=== PATIENT | female | born 1975 | race African-American/Black ===

== ENCOUNTER 2017-08-29 01:12 | Emergency (ER) | payer SELFPAY ==
[2017-08-29] MEDS ORDERED: Ondansetron 4 MG/2 ML SDV IVPUSH ONE (01:20)
[2017-08-29] MEDS ORDERED: Sodium Chloride 0.9% 1,000 ML IV ONE (01:20)
[2017-08-29] MEDS ORDERED: Ketorolac 30 MG/ML SDV IVPUSH ONE (01:20)
--- NOTE | 2017-08-29 01:21 | EDM.PDOC ---
ED HPI GENERAL MEDICAL PROBLEM - General Stated Complaint: ABDOMINAL PAIN Time Seen by Provider: 08/29/17 01:21 Source of Information: Reports: Patient - History of Present Illness INITIAL COMMENTS - FREE TEXT/NARRATIVE: HISTORY AND PHYSICAL: History of present illness: [Patient presents with left upper quadrant pain persistent throughout the day no fever nausea vomiting diarrhea constipation chest pain shortness breath no headache dizziness or palpitation no bowel or urine symptoms last bowel movement normal formed stool yesterday morning, approximately 20 hours ago. She has known history of anemia, she is not a sickle cell patient, she generally takes iron supplementation intermittently History of appendectomy ] Review of systems: As per history of present illness and below otherwise all systems reviewed and negative. Past medical history: As per history of present illness and as reviewed below otherwise noncontributory. Surgical history: As per history of present illness and as reviewed below otherwise noncontributory. Social history: No reported history of drug or alcohol abuse. Family history: As per history of present illness and as reviewed below otherwise noncontributory. Physical exam: HEENT: Atraumatic, normocephalic, pupils reactive, negative for conjunctival pallor or scleral icterus, mucous membranes moist, throat clear, neck supple, nontender, trachea midline. Lungs: Clear to auscultation, breath sounds equal bilaterally, chest nontender. Heart: S1S2, regular, negative for clicks, rubs, or JVD. Abdomen: Soft, protuberant, nontender. Negative for masses or hepatosplenomegaly. Negative for costovertebral tenderness. Pelvis: Stable nontender. Genitourinary: Deferred. Rectal: Deferred. By patient Extremities: Atraumatic, negative for cords or calf pain. Neurovascular unremarkable. Neuro: Awake, alert, oriented. Cranial nerves II through XII unremarkable. Cerebellum unremarkable. Motor and sensory unremarkable throughout. Exam nonfocal. Diagnostics: [CBC CMP UA hCG] ET abdomen pelvis with and without contrast Therapeutics: [1 L normal saline bolus Zofran 8 mg IV Toradol 30 mg IV ] Reglan 10 mg IV Reglan Simethicone MiraLAX Follow-up with primary care Impression: Abdominal pain Anemia Definitive disposition and diagnosis as appropriate pending reevaluation and review of above. L Flank/Side Pain Score (Numeric/FACES): 8 - Related Data Allergies Allergy/AdvReac Type Severity Reaction Status Date / Time No Known Allergies Allergy Verified 08/29/17 01:26 Home Meds: Home Meds . [No Known Home Meds] 08/29/17 [History] ED ROS GENERAL - Review of Systems Review Of Systems: See Below ED EXAM, GENERAL - Physical Exam Exam: See Below Course - Vital Signs Last Recorded V/S: Last Vital Signs Temp 98.0 F 08/29/17 01:22 Pulse 81 08/29/17 01:22 Resp 16 08/29/17 01:22 BP 123/81 08/29/17 01:22 Pulse Ox 99 08/29/17 01:22 - Orders/Labs/Meds Orders: Active Orders 24 hr Category Date Time Status Abdomen Pelvis w wo Cont [CT] Stat Exams 08/29/17 01:50 Taken Abdomen Pelvis wo Cont [CT] Stat Exams 08/29/17 01:49 Stop Req HCG QUALITATIVE,URINE [URCHEM] Stat Lab 08/29/17 01:28 Ordered UA W/MICROSCOPIC [URIN] Stat Lab 08/29/17 01:28 Ordered Labs: Laboratory Tests 08/29/17 08/29/17 08/29/17 Range/Units 01:28 01:28 01:33 WBC 6.68 (4.0-11.0) K/uL RBC 4.58 (4.30-5.90) M/uL Hgb 8.9 L (12.0-16.0) g/dL Hct 30.2 L (36.0-46.0) % MCV 65.9 L (80.0-98.0) fL MCH 19.4 L (27.0-32.0) pg MCHC 29.5 L (31.0-37.0) g/dL RDW Std Deviation 41.3 (28.0-62.0) fl RDW Coeff of Deon 18 H (11.0-15.0) % Plt Count 265 (150-400) K/uL MPV 10.30 (7.40-12.00) fL Neut % (Auto) 40.1 L (48.0-80.0) % Lymph % (Auto) 47.2 H (16.0-40.0) % [place]haw % (Auto) 11.5 (0.0-15.0) % Eos % (Auto) 0.6 (0.0-7.0) % Baso % (Auto) 0.6 (0.0-1.5) % Neut # (Auto) 2.7 (1.4-5.7) K/uL Lymph # (Auto) 3.2 H (0.6-2.4) K/uL [place]haw # (Auto) 0.8 (0.0-0.8) K/uL Eos # (Auto) 0.0 (0.0-0.7) K/uL Baso # (Auto) 0.0 (0.0-0.1) K/uL Sodium (136-145) mmol/L Potassium (3.5-5.1) mmol/L Chloride (98-107) mmol/L Carbon Dioxide (21.0-32.0) mmol/L BUN (7.0-18.0) mg/dL Creatinine (0.6-1.0) mg/dL Est Cr Clr Drug Dosing mL/min Estimated GFR (MDRD) ml/min Glucose (74-106) mg/dL Calcium (8.5-10.1) mg/dL Total Bilirubin (0.2-1.0) mg/dL AST (15-37) IU/L ALT (14-63) IU/L Alkaline Phosphatase (46-116) U/L Total Protein (6.4-8.2) g/dL Albumin (3.4-5.0) g/dL Globulin (2.0-3.5) g/dL Albumin/Globulin Ratio (1.3-2.8) Lipase (73-393) U/L Urine Color YELLOW Urine Appearance CLEAR Urine pH 6.0 (5.0-8.0) Ur Specific [place] 1.015 (1.001-1.035) Urine Protein NEGATIVE (NEGATIVE) mg/dL Urine Glucose (UA) NEGATIVE (NEGATIVE) mg/dL Urine Ketones NEGATIVE (NEGATIVE) mg/dL Urine Occult Blood NEGATIVE (NEGATIVE) Urine Nitrite NEGATIVE (NEGATIVE) Urine Bilirubin NEGATIVE (NEGATIVE) Urine Urobilinogen 0.2 (<2.0) EU/dL Ur Leukocyte Esterase NEGATIVE (NEGATIVE) Urine RBC 1-3 (0-2/HPF) Urine WBC 0-2 (0-5/HPF) Ur Epithelial Cells MODERATE (NONE-FEW) Urine Bacteria 1+ H (NEGATIVE) Urine HCG, Qual NEGATIVE (NEGATIVE) 08/29/17 08/29/17 Range/Units 01:33 01:33 WBC (4.0-11.0) K/uL RBC (4.30-5.90) M/uL Hgb (12.0-16.0) g/dL Hct (36.0-46.0) % MCV (80.0-98.0) fL MCH (27.0-32.0) pg MCHC (31.0-37.0) g/dL RDW Std Deviation (28.0-62.0) fl RDW Coeff of Deon (11.0-15.0) % Plt Count (150-400) K/uL MPV (7.40-12.00) fL Neut % (Auto) (48.0-80.0) % Lymph % (Auto) (16.0-40.0) % [place]haw % (Auto) (0.0-15.0) % Eos % (Auto) (0.0-7.0) % Baso % (Auto) (0.0-1.5) % Neut # (Auto) (1.4-5.7) K/uL Lymph # (Auto) (0.6-2.4) K/uL [place]haw # (Auto) (0.0-0.8) K/uL Eos # (Auto) (0.0-0.7) K/uL Baso # (Auto) (0.0-0.1) K/uL Sodium 138 (136-145) mmol/L Potassium 3.7 (3.5-5.1) mmol/L Chloride 105 (98-107) mmol/L Carbon Dioxide 26.3 (21.0-32.0) mmol/L BUN 11 (7.0-18.0) mg/dL Creatinine 0.7 (0.6-1.0) mg/dL Est Cr Clr Drug Dosing 102.85 mL/min Estimated GFR (MDRD) > 60.0 ml/min Glucose 108 H (74-106) mg/dL Calcium 8.5 (8.5-10.1) mg/dL Total Bilirubin 0.5 (0.2-1.0) mg/dL AST 17 (15-37) IU/L ALT 19 (14-63) IU/L Alkaline Phosphatase 41 L (46-116) U/L Total Protein 7.5 (6.4-8.2) g/dL Albumin 3.5 (3.4-5.0) g/dL Globulin 4.0 H (2.0-3.5) g/dL Albumin/Globulin Ratio 0.9 L (1.3-2.8) Lipase 115 (73-393) U/L Urine Color Urine Appearance Urine pH (5.0-8.0) Ur Specific [place] (1.001-1.035) Urine Protein (NEGATIVE) mg/dL Urine Glucose (UA) (NEGATIVE) mg/dL Urine Ketones (NEGATIVE) mg/dL Urine Occult Blood (NEGATIVE) Urine Nitrite (NEGATIVE) Urine Bilirubin (NEGATIVE) Urine Urobilinogen (<2.0) EU/dL Ur Leukocyte Esterase (NEGATIVE) Urine RBC (0-2/HPF) Urine WBC (0-5/HPF) Ur Epithelial Cells (NONE-FEW) Urine Bacteria (NEGATIVE) Urine HCG, Qual (NEGATIVE) Meds: Medications Discontinued Medications Generic Name Dose Route Start Last Admin Trade Name Shilpa PRN Reason Stop Dose Admin Sodium Chloride 1,000 mls @ 999 mls/hr 08/29/17 01:20 08/29/17 01:35 Normal Saline IV 08/29/17 02:20 999 mls/hr STAT ONE Administration Ketorolac Tromethamine 30 mg 08/29/17 01:20 08/29/17 01:39 Toradol IVPUSH 08/29/17 01:21 30 mg ONETIME ONE Administration Ondansetron HCl 8 mg 08/29/17 01:20 08/29/17 01:37 Zofran IVPUSH 08/29/17 01:21 8 mg ONETIME ONE Administration Departure - Departure Time of Disposition: 03:38 Disposition: Home, Self-Care 01 Condition: Good Clinical Impression: Abdominal pain - Discharge Information Referrals: PCP,None [Primary Care Provider] - Additional Instructions: Medication as prescribed MiraLAX 17 g by mouth daily until clear Clear liquid diet until bowels are clear generally 12-24 hours Return if symptoms persist or worsen or new concerning symptoms develop [facility] is open tomorrow from noon until 3pm to fill prescription medications Follow-up with primary care, call phone number below to schedule appropriate follow-up to recheck hemoglobin levels [facility] [address] [place] [id number] The following information is given to patients seen in the emergency department who are being discharged to home. This information is to outline your options for follow-up care. We provide all patients seen in our emergency department with a follow-up referral. The need for follow-up, as well as the timing and circumstances, are variable depending upon the specifics of your emergency department visit. If you don't have a primary care physician on staff, we will provide you with a referral. We always advise you to contact your personal physician following an emergency department visit to inform them of the circumstance of the visit and for follow-up with them and/or the need for any referrals to a consulting specialist. The emergency department will also refer you to a specialist when appropriate. This referral assures that you have the opportunity for follow-up care with a specialist. All of these measure are taken in an effort to provide you with optimal care, which includes your follow-up. Under all circumstances we always encourage you to contact your private physician who remains a resource for coordinating your care. When calling for follow-up care, please make the office aware that this follow-up is from your recent emergency room visit. If for any reason you are refused follow-up, please contact the [facility] emergency department at and asked to speak to the emergency department charge nurse. - My Orders Last 24 Hours: My Active Orders 08/29/17 01:28 HCG QUALITATIVE,URINE [URCHEM] Stat UA W/MICROSCOPIC [URIN] Stat 08/29/17 01:49 Abdomen Pelvis wo Cont [CT] Stat 08/29/17 01:50 Abdomen Pelvis w wo Cont [CT] Stat - Assessment/Plan Last 24 Hours: My Active Orders 08/29/17 01:28 HCG QUALITATIVE,URINE [URCHEM] Stat UA W/MICROSCOPIC [URIN] Stat 08/29/17 01:49 Abdomen Pelvis wo Cont [CT] Stat 08/29/17 01:50 Abdomen Pelvis w wo Cont [CT] Stat
[2017-08-29 01:56] LABS: CHLORIDE,CL 105 mmol/L (98-107); SODIUM,NA 138 mmol/L (136-145)
--- NOTE | 2017-08-31 10:55 | CT ---
EXAM DATE: 08/29/17 PATIENT'S AGE: 42 Patient: AMANDO RESENDIZ Facility: [place], [place] Site . Site : [id number] Study: CT Abdomen/Pelvis W/ and W/O Cont [id number]/[id number] 2:22:11 AM Ordering Physician: Arianna Barboza Final Report: INDICATION: Generalized abdominal pain. TECHNIQUE: CT abdomen and pelvis acquired without and with i.v. 100 mL Omnipaque 350. Coronal and sagittal reformats were obtained. COMPARISON: None FINDINGS: Restaurant Cook CT images: Nonobstructive bowel gas pattern. Moderate stool in the ascending colon. Lower chest: Unremarkable. Liver: Unremarkable. Spleen: Unremarkable. Pancreas: Unremarkable. Gallbladder and bile ducts: Unremarkable. Kidneys: Unremarkable. No kidney or ureteral stones and no hydronephrosis seen. Adrenal glands: Unremarkable. GI tract: No bowel obstruction. Moderate stool burden in nondilated large bowel. Appendix not clearly identified in the right lower quadrant. No fat stranding or fluid adjacent to the cecum. No abnormal bowel wall thickening. Small bowel mucosal enhancement preserved. No interloop ascites or abnormal mesenteric fat stranding. Vascular: All abdominal aorta is normal in caliber. No abdominal aortic dissection. Normal orientation of the SMA and SMV. However, there appears to be twisting of the mesenteric veins around the SMA in the central mesentery. Mesenteric vessels appear to be well opacified. Lymph nodes: Unremarkable. Miscellaneous: Unremarkable. No pneumoperitoneum is seen. No significant ascites is noted. Fact containing umbilical hernia defect. Pelvic Organs: Unremarkable. No free pelvic fluid. Bones: Unremarkable for age. IMPRESSION: 1. No acute abnormality in the abdomen or pelvis on noncontrast or contrast- enhanced CT imaging. 2. No obstructing renal or ureteral calculi. 3. Normal orientation of the SMA and SMV. Swirling of mesenteric vessels around the SMA axis in the central mesentery. No adjacent edema or interloop ascites. No evidence of acute bowel injury at this time. Findings may represent normal variant in this patient, but possible midgut volvulus or internal hernia can be associated with this finding. If clinical symptoms persist, consider general surgery evaluation. Findings noted on series 301 images 58- 80. Dictated by Gabe Sr MD @ 08/29/2017 3:28:42 AM Please note that all CT scans at this facility use dose modulation, iterative reconstruction, and/or weight-based dosing when appropriate to reduce radiation dose to as low as reasonably achievable. Dictated by: Gabe Sr MD @ 08/29/2017 03:28:48 ----- ADDENDUM ----- ADDENDUM: 1. Dr. Keller confirmed report receipt on 08/29/2017 at 3:32am DIRECTOR OF CATERING. Dictated by Gabe Sr MD @ Aug 29 2017 3:53AM (Electronic Signature) Report Signed by Proxy. [facility]
== END 2017-08-29 04:35 | disposition home or self-care (01) ==
LOC: MW.ED 01:12
DX: D64.9 Anemia, unspecified (principal); R10.12 Left upper quadrant pain
CPT/HCPCS: 36415; 74178; 80053; 81001; 81025; 83690; 85025; 96361; 96374; 96375; 99284; J1885; J2405; J7040; 99283

== ENCOUNTER 2019-05-08 16:26 | Emergency (ER) | payer SELFPAY ==
--- NOTE | 2019-05-08 17:14 | EDM.PDOC ---
ED HPI GENERAL MEDICAL PROBLEM - General Chief Complaint: ROOFER VINYL COATING Problem Stated Complaint: LEFT LEG PAIN Time Seen by Provider: 05/08/19 17:10 Source of Information: Reports: Patient - History of Present Illness INITIAL COMMENTS - FREE TEXT/NARRATIVE: HISTORY AND PHYSICAL: History of present illness: [Patient presents with painful swelling of the left labia No fever nausea vomiting chills sweats ] Review of systems: As per history of present illness and below otherwise all systems reviewed and negative. Past medical history: As per history of present illness and as reviewed below otherwise noncontributory. Surgical history: As per history of present illness and as reviewed below otherwise noncontributory. Social history: No reported history of drug or alcohol abuse. Family history: As per history of present illness and as reviewed below otherwise noncontributory. Physical exam: HEENT: Atraumatic, normocephalic, pupils reactive, negative for conjunctival pallor or scleral icterus, mucous membranes moist, throat clear, neck supple, nontender, trachea midline. Lungs: Clear to auscultation, breath sounds equal bilaterally, chest nontender. Heart: S1S2, regular, negative for clicks, rubs, or JVD. Abdomen: Soft, nondistended, nontender. Negative for masses or hepatosplenomegaly. Negative for costovertebral tenderness. Pelvis: Stable nontender. Genitourinary: external exam performed , fluctuant lesion left labia, tender, acant dranage post i&D Rectal: Deferred. Extremities: Atraumatic, negative for cords or calf pain. Neurovascular unremarkable. Neuro: Awake, alert, oriented. Cranial nerves II through XII unremarkable. Cerebellum unremarkable. Motor and sensory unremarkable throughout. Exam nonfocal. Diagnostics: [culture, wound ] Therapeutics: [cipro flagyl ] Impression: [abcess, post I&D] Definitive disposition and diagnosis as appropriate pending reevaluation and review of above. labia Pain Score (Numeric/FACES): 5 - Related Data Allergies Allergy/AdvReac Type Severity Reaction Status Date / Time No Known Allergies Allergy Verified 05/08/19 16:43 Home Meds: Home Meds . [No Known Home Meds] 08/29/17 [History] Past Medical History - Past Health History Medical/Surgical History: Denies Medical/Surgical History - Infectious Disease History Infectious Disease History: Reports: None Social & Family History - Family History Family Medical History: Noncontributory - Tobacco Use Smoking Status *Q: Never Smoker - Caffeine Use Caffeine Use: Reports: None - Recreational Drug Use Recreational Drug Use: No ED ROS GENERAL - Review of Systems Review Of Systems: See Below ED EXAM, GENERAL - Physical Exam Exam: See Below Course - Vital Signs Last Recorded V/S: Last Vital Signs Temp 98.3 F 05/08/19 16:39 Pulse 77 05/08/19 16:39 Resp 18 05/08/19 16:39 BP 143/88 H 05/08/19 16:39 Pulse Ox 99 05/08/19 16:39 - Orders/Labs/Meds Meds: Medications Discontinued Medications Generic Name Dose Route Start Last Admin Trade Name Shilpa PRN Reason Stop Dose Admin Lidocaine HCl Confirm 05/08/19 16:53 Xylocaine-Mpf 1% Administered 05/08/19 16:54 Dose 5 ml .ROUTE .STK-MED ONE Departure - Departure Time of Disposition: 17:13 Disposition: Home, Self-Care 01 Condition: Good Clinical Impression: Abscess - Discharge Information Referrals: PCP,None [Primary Care Provider] - Additional Instructions: medication as prescribed Return if symptoms persist or worsen Follow-up with gynecology, Wednesday for reexamination/recheck [facility] [address] [place] [address] The following information is given to patients seen in the emergency department who are being discharged to home. This information is to outline your options for follow-up care. We provide all patients seen in our emergency department with a follow-up referral. The need for follow-up, as well as the timing and circumstances, are variable depending upon the specifics of your emergency department visit. If you don't have a primary care physician on staff, we will provide you with a referral. We always advise you to contact your personal physician following an emergency department visit to inform them of the circumstance of the visit and for follow-up with them and/or the need for any referrals to a consulting specialist. The emergency department will also refer you to a specialist when appropriate. This referral assures that you have the opportunity for follow-up care with a specialist. All of these measure are taken in an effort to provide you with optimal care, which includes your follow-up. Under all circumstances we always encourage you to contact your private physician who remains a resource for coordinating your care. When calling for follow-up care, please make the office aware that this follow-up is from your recent emergency room visit. If for any reason you are refused follow-up, please contact the [facility] emergency department at and asked to speak to the emergency department charge nurse. Sepsis Event Note - Evaluation Sepsis Screening Result: No Definite Risk - Focused Exam Vital Signs: Vital Signs Temp Pulse Resp BP Pulse Ox 05/08/19 16:39 98.3 F 77 18 143/88 H 99 Date Exam was Performed: 05/08/19 Time Exam was Performed: 17:10
== END 2019-05-08 17:35 | disposition home or self-care (01) ==
LOC: MW.ED 16:26
DX: N76.4 Abscess of vulva (principal)
CPT/HCPCS: 56405; 87070; 87077; 87186; 99283; J2001; 10060

== ENCOUNTER 2020-06-03 10:26 | Inpatient (IN) | payer MEDICAID ==
[2020-06-03] MEDS ORDERED: Methylergonovine 0.2 MG/1 ML Amp IM PRN (16:22)
[2020-06-03] MEDS ORDERED: Carboprost Tromethamine 250 MCG/1 ML Amp IM PRN (16:22)
[2020-06-03] MEDS ORDERED: Sodium Chloride 0.9% 10 ML Syringe FLUSH PRN (16:22)
[2020-06-03] MEDS ORDERED: Sodium Chloride 0.9% 2.5 ML Syringe FLUSH PRN (16:22)
[2020-06-03] MEDS ORDERED: Ondansetron 4 MG/2 ML SDV IVPUSH PRN (16:22)
[2020-06-03] MEDS ORDERED: Nalbuphine 10 MG/1 ML Vial IVPUSH PRN (16:22)
[2020-06-03] MEDS ORDERED: Misoprostol 200 MCG Tab PO PRN (16:22)
[2020-06-03] MEDS ORDERED: Water For Irrigation,Sterile 1,000 ML Container IRR PRN (16:22)
[2020-06-03] MEDS ORDERED: Terbutaline 1 MG/ML SDV SUBCUT PRN (16:22)
[2020-06-03] MEDS ORDERED: Lidocaine 1% 50 ML MDV INJECT PRN (16:22)
[2020-06-03] MEDS ORDERED: Tranexamic Acid 1,000 MG in Sodium Chloride 0.9% 100 ML IV PRN (16:22)
[2020-06-03] MEDS ORDERED: Sodium Chloride 0.9% 10 ML SDV IV PRN (16:22)
[2020-06-03] MEDS ORDERED: Oxytocin/0.9 % Sodium Chloride 30 UNIT/500 ML BAG IV SCH ×2 (16:30)
[2020-06-03] MEDS ORDERED: Misoprostol 25 MCG (1/4 of 100 MCG) Tab VAG PRN (17:00)
[2020-06-03] MEDS: Lactated Ringers 1,000 ML IV SCH (18:05)
[2020-06-03 19:17] LABS: BLOOD UREA NITROGEN,BUN 7 mg/dL (7.0-18.0); CARBON DIOXIDE,CO2 22.8 mmol/L (21.0-32.0); CHLORIDE,CL 102 mmol/L (98-107); GLUCOSE RANDOM 86 mg/dL (74-106); POTASSIUM,K 3.8 mmol/L (3.5-5.1); SODIUM,NA 136 mmol/L (136-145)
[2020-06-03] MEDS: Misoprostol 25 MCG (1/4 of 100 MCG) Tab VAG PRN (22:41)
[2020-06-04] MEDS: Misoprostol 25 MCG (1/4 of 100 MCG) Tab VAG PRN ×2 (02:43→08:04)
[2020-06-04] MEDS: Butorphanol 1 MG/ML SDV IVPUSH PRN ×2 (03:39→17:08)
[2020-06-04] MEDS: Lactated Ringers 1,000 ML IV SCH ×3 (08:04→18:41)
[2020-06-04] MEDS ORDERED: Acetaminophen 500 MG Tab PO PRN (09:00)
[2020-06-04] MEDS ORDERED: Ropivacaine 0.2% PF 2 MG/ML 20 ML SDV ONE (17:42)
[2020-06-04] MEDS ORDERED: Bupivicaine/fentaNYL/NS 250 ML ONE (17:43)
--- NOTE | 2020-06-04 18:31 | PCM.PREANE ---
Preanesthetic Assessment - Procedure Proposed Procedure: labor epidural - Anesthesia/Transfusion/Family Hx Anesthesia History: Prior Anesthesia Without Reaction Family History of Anesthesia Reaction: No Transfusion History: No Prior Transfusion(s) - Review of Systems General: No Symptoms Pulmonary: No Symptoms Cardiovascular: No Symptoms, Other (gestational HTN) Gastrointestinal: No Symptoms Neurological: No Symptoms Other: Reports: None, Diabetes (gestational) - Physical Assessment Height: 5 ft 6 in Weight: 107.501 kg ASA Class: 3 Mental Status: Alert & Oriented x3 Airway Class: Mallampati = 1 Dentition: Reports: Normal Dentition Thyro-Mental Finger Breadths: 3 Mouth Opening Finger Breadths: 3 ROM/Head Extension: Full Lungs: Clear to Auscultation, Normal Respiratory Effort Cardiovascular: Regular Rate, Regular Rhythm - Lab Values: Laboratory Last Values WBC 8.09 K/uL (4.0-11.0) 06/03/20 18:04 RBC 4.97 M/uL (4.30-5.90) 06/03/20 18:04 Hgb 13.3 g/dL (12.0-16.0) 06/03/20 18:04 Hct 41.2 % (36.0-46.0) 06/03/20 18:04 MCV 82.9 fL (80.0-98.0) 06/03/20 18:04 MCH 26.8 pg (27.0-32.0) L 06/03/20 18:04 MCHC 32.3 g/dL (31.0-37.0) 06/03/20 18:04 RDW Std Deviation 50.7 fl (28.0-62.0) 06/03/20 18:04 RDW Coeff of Deon 17 % (11.0-15.0) H 06/03/20 18:04 Plt Count 161 K/uL (150-400) 06/03/20 18:04 MPV 10.60 fL (7.40-12.00) 06/03/20 18:04 Neut % (Auto) 67.7 % (48.0-80.0) 06/03/20 18:04 Lymph % (Auto) 22.9 % (16.0-40.0) 06/03/20 18:04 Broome % (Auto) 9.1 % (0.0-15.0) 06/03/20 18:04 Eos % (Auto) 0.2 % (0.0-7.0) 06/03/20 18:04 Baso % (Auto) 0.1 % (0.0-1.5) 06/03/20 18:04 Neut # (Auto) 5.5 K/uL (1.4-5.7) 06/03/20 18:04 Lymph # (Auto) 1.9 K/uL (0.6-2.4) 06/03/20 18:04 Broome # (Auto) 0.7 K/uL (0.0-0.8) 06/03/20 18:04 Eos # (Auto) 0.0 K/uL (0.0-0.7) 06/03/20 18:04 Baso # (Auto) 0.0 K/uL (0.0-0.1) 06/03/20 18:04 Nucleated RBC % 0.0 /100WBC 06/03/20 18:04 Nucleated RBCs # 0 K/uL 06/03/20 18:04 Sodium 136 mmol/L (136-145) 06/03/20 18:26 Potassium 3.8 mmol/L (3.5-5.1) 06/03/20 18:26 Chloride 102 mmol/L (98-107) 06/03/20 18:26 Carbon Dioxide 22.8 mmol/L (21.0-32.0) 06/03/20 18:26 BUN 7 mg/dL (7.0-18.0) 06/03/20 18:26 Creatinine 0.4 mg/dL (0.6-1.0) L 06/03/20 18:26 Est Cr Clr Drug Dosing 185.52 mL/min 06/03/20 18:26 Estimated GFR (MDRD) > 60.0 ml/min 06/03/20 18:26 Glucose 86 mg/dL (74-106) 06/03/20 18:26 Uric Acid 4.2 mg/dL (2.6-7.2) 06/03/20 18:26 Calcium 9.2 mg/dL (8.5-10.1) 06/03/20 18:26 Total Bilirubin 0.8 mg/dL (0.2-1.0) 06/03/20 18:26 AST 16 IU/L (15-37) 06/03/20 18:26 ALT 24 IU/L (14-63) 06/03/20 18:26 Alkaline Phosphatase 153 U/L (46-116) H 06/03/20 18:26 Total Protein 6.8 g/dL (6.4-8.2) 06/03/20 18:26 Albumin 2.5 g/dL (3.4-5.0) L 06/03/20 18:26 Globulin 4.3 g/dL (2.6-4.0) H 06/03/20 18:26 Albumin/Globulin Ratio 0.6 (0.9-1.6) L 06/03/20 18:26 Ur Random Creatinine 50.8 mg/dL 06/03/20 17:00 U Random Total Protein 15.3 mg/dL (<11.9) H 06/03/20 17:00 Protein/Creatinin Ratio 0.3 06/03/20 17:00 SARS-CoV-2 RNA (ANDREY) NEGATIVE (NEGATIVE) 06/03/20 18:30 Blood Type B POSITIVE 06/03/20 18:26 Antibody Screen NEGATIVE 06/03/20 18:26 - Allergies Allergies/Adverse Reactions: Allergies Allergy/AdvReac Type Severity Reaction Status Date / Time No Known Allergies Allergy Verified 06/03/20 16:39 - Blood Blood Available: Yes Product(s) Available: PRBC - Anesthesia Plan Pre-Op Medication Ordered: None - Acknowledgements Anesthesia Type Planned: Epidural Pt an Appropriate Candidate for the Planned Anesthesia: Yes Alternatives and Risks of Anesthesia Discussed w Pt/Guardian: Yes Pt/Guardian Understands and Agrees with Anesthesia Plan: Yes PreAnesthesia Questionnaire - Past Health History Medical/Surgical History: Denies Medical/Surgical History Cardiovascular History: Reports: Other (See Below) Other Cardiovascular History: gestational hypertension Gastrointestinal History: Reports: None Genitourinary History: Reports: None ACTIVITIES VOLUNTEER History: Reports: Fibroids, , Spontaneous - Infectious Disease History Infectious Disease History: Reports: None - Past Surgical History Head Surgeries/Procedures: Reports: None Cardiovascular Surgical History: Reports: None GI Surgical History: Reports: Appendectomy, Other (See Below) Other GI Surgeries/Procedures: 2010 Female Surgical History: Reports: Cystectomy Dermatological Surgical History: Reports: None - SUBSTANCE USE Tobacco Use Status *Q: Never Tobacco User Second Hand Smoke Exposure: No Recreational Drug Use History: No - HOME MEDS Home Medications: Home Meds Docusate Sodium [Colace] 100 mg PO DAILY PRN #30 cap 03/04/20 [Rx] Ferrous Sulfate, Dried [Iron] 160 mg PO DAILY 06/03/20 [History] Vits #93/Iron Fum/FA [ Formula Tablet] 1 each PO DAILY 06/03/20 [History] - CURRENT (IN HOUSE) MEDS Current Meds: Current Medications Acetaminophen (Tylenol Extra Strength) 1,000 mg PO Q8H PRN PRN Reason: Pain (mild 1-3) Last Admin: 06/04/20 09:10 Dose: 1,000 mg Documented by: Butorphanol Tartrate (Stadol) 1 mg IVPUSH Q1H PRN PRN Reason: Pain Last Admin: 06/04/20 17:08 Dose: 1 mg Documented by: Carboprost Tromethamine (Hemabate Ds) 250 mcg IM ASDIRECTED PRN PRN Reason: Post Hemorrhage Oxytocin/Sodium Chloride (Oxytocin 30 Unit/500 Ml-Ns) 30 unit in 500 mls @ 999 mls/hr IV TITRATE JEANNE Tranexamic Acid 1,000 mg/ (Sodium Chloride) 110 mls @ 660 mls/hr IV ONETIME PRN PRN Reason: Bleeding Oxytocin/Sodium Chloride (Oxytocin 30 Unit/500 Ml-Ns) 30 unit in 500 mls @ 2 mls/hr IV TITRATE JEANNE; Protocol Last Titration: 06/04/20 16:10 Dose: 8 munits/min, 8 mls/hr Documented by: Lactated Ringer's (Ringers, Lactated) 1,000 mls @ 150 mls/hr IV ASDIRECTED JEANNE Last Admin: 06/04/20 18:05 Dose: 999 mls/hr Documented by: Lidocaine HCl (Xylocaine 1%) 50 ml INJECT ONETIME PRN PRN Reason: Laceration repair Methylergonovine Maleate (Methergine) 0.2 mg IM ASDIRECTED PRN PRN Reason: Post Hemorrhage Misoprostol (Cytotec) 200 mcg PO ONETIME PRN PRN Reason: Post Hemorrhage Misoprostol (Cytotec) 25 mcg VAG ONETIME PRN PRN Reason: Cervical Ripening Last Admin: 06/03/20 18:40 Dose: 25 mcg Documented by: Misoprostol (Cytotec) 25 mcg VAG Q4H PRN PRN Reason: Cervical Ripening Last Admin: 06/04/20 08:04 Dose: 25 mcg Documented by: Nalbuphine HCl (Nubain) 10 mg IVPUSH Q1H PRN PRN Reason: Pain (severe 7-10) Ondansetron HCl (Zofran) 4 mg IVPUSH Q6H PRN PRN Reason: Nausea/Vomiting Sodium Chloride (Saline Flush) 10 ml FLUSH ASDIRECTED PRN PRN Reason: Keep Vein Open Sodium Chloride (Saline Flush) 2.5 ml FLUSH ASDIRECTED PRN PRN Reason: Keep Vein Open Last Admin: 06/04/20 17:17 Dose: 2.5 ml Documented by: Sodium Chloride (Normal Saline) 10 ml IV ASDIRECTED PRN PRN Reason: IV Use Sterile Water (Sterile Water For Irrigation) 1,000 ml IRR ASDIRECTED PRN PRN Reason: delivery Terbutaline Sulfate (Brethine) 0.25 mg SUBCUT ASDIRECTED PRN PRN Reason: Tacysystole Discontinued Medications Fentanyl/Bupivacaine HCl (Fentanyl/Bupivacaine/Ns 2 Mcg-0.125% 250 Ml) Confirm Administered Dose 250 mls @ as directed .ROUTE .STwufoo-MED ONE Stop: 06/04/20 17:44 Ropivacaine (Naropin 0.2%) Confirm Administered Dose 20 ml .ROUTE .STK-MED ONE Stop: 06/04/20 17:43
[2020-06-05] MEDS: Lactated Ringers 1,000 ML IV SCH ×2 (04:16→15:53)
[2020-06-05] MEDS ORDERED: Bupivacaine 0.5% 30 ML SDV ONE (09:34)
--- NOTE | 2020-06-05 09:52 | PCM.SN.2 ---
- Free Text/Narrative Note: 35yo here for IOL for mild preclampsia. she has had a prolonged IOL She is s/p cytotec X 4 doses , CRB placed 1pm yesterday and pitocin started Her BPs have been mild range. She denies headache, RUQ pain and BV I removed CRB this am ; Cervix 4cm/50/-3. Patient is on 28 Units of pitocin. Patient was offered primary for failure to progress and maternal fatigue She was informed R/B/A , of placing an IUPC and monitoring till midnight today. Patient declined continuation and desires . Assessment: 39w2d , mild preclampsia , failed IOL , Fibroid uterus Plan Consent done in [place] , patient given opportunity to ask questions all questions answered Consented for Anaesthesia and peds informed
[2020-06-05] MEDS ORDERED: Sodium Chloride 0.9% 10 ML SDV IV PRN (09:54)
[2020-06-05] MEDS ORDERED: Sodium Chloride 0.9% 2.5 ML Syringe FLUSH PRN (09:54)
[2020-06-05] MEDS ORDERED: Citric Acid/Sodium Citrate Solution 30 ML Cup PO ONE (09:54)
[2020-06-05] MEDS ORDERED: Sodium Chloride 0.9% 10 ML Syringe FLUSH PRN (09:54)
[2020-06-05] MEDS ORDERED: Lactated Ringers 1,000 ML IV SCH (10:00)
[2020-06-05] MEDS ORDERED: Ondansetron 4 MG/2 ML SDV ONE (10:00)
[2020-06-05] MEDS ORDERED: Oxytocin 10 Units/1 ML SDV ONE ×2 (10:00→12:01)
[2020-06-05] MEDS ORDERED: Oxytocin/0.9 % Sodium Chloride 30 UNIT/500 ML BAG IV SCH (10:00)
[2020-06-05] MEDS ORDERED: Morphine PF 10 MG/10 ML SDV ONE (10:00)
[2020-06-05] MEDS ORDERED: Azithromycin 500 MG in Sodium Chloride 0.9% 250 ML IV ONE (10:15)
[2020-06-05] MEDS ORDERED: fentaNYL 100 MCG/2 ML SDV ONE (10:17)
[2020-06-05] MEDS ORDERED: Succinylcholine/Sod PF 100 MG/5 ML SYRINGE IV ONE (10:21)
[2020-06-05] MEDS ORDERED: Propofol 200 MG/20 ML SDV ONE (10:21)
[2020-06-05] MEDS ORDERED: Midazolam 1 MG/ML 2 ML SDV ONE (10:36)
[2020-06-05] MEDS ORDERED: ePHEDrine 50 MG/ML SDV ONE (10:43)
[2020-06-05] MEDS ORDERED: Ondansetron 4 MG/2 ML SDV IVPUSH PRN (11:27)
[2020-06-05] MEDS ORDERED: Naloxone 0.4 MG/ML Syringe IVPUSH PRN (11:27)
[2020-06-05] MEDS ORDERED: Acetaminophen/oxyCODONE 325-5 MG Tab PO PRN (11:27)
[2020-06-05] MEDS ORDERED: Nalbuphine 10 MG/1 ML Vial IVPUSH PRN (11:27)
[2020-06-05] MEDS ORDERED: diphenhydrAMINE 50 MG/ML SDV IVPUSH PRN (11:27)
--- NOTE | 2020-06-05 11:28 | PCM.OPNOTE ---
<Saima Galvan - Last Filed: 06/05/20 11:25> - General Post-Op/Procedure Note Date of Surgery/Procedure: 06/05/20 Operative Procedure(s): section Findings: Liveborn viable male infant Pre Op Diagnosis: IUP with failure to progress Post-Op Diagnosis: Same Anesthesia Technique: General ET Tube Primary Surgeon: Marc Feng Secondary Surgeon: Saima Galvan ([id number]) Pathology: none Fluid Replacement, Intraop: 1,500 Output, Urine Amount: 550 EBL in mLs: 700 Complications: none known Condition: Stable Free Text/Narrative:: Intake & Output 06/04/20 06/05/20 06/05/20 22:59 06:59 14:59 Output Total 1400 Balance -1400 <Marc Feng - Last Filed: 06/05/20 11:34> - General Post-Op/Procedure Note Findings: Live male delivered at 1026am 8/8 weight 4080g Anesthesia Technique: Epidural Anesthesia Provider: Rosalia Carson Free Text/Narrative:: Intake & Output 06/04/20 06/05/20 06/05/20 22:59 06:59 14:59 Intake Total 1500 Output Total 1400 550 Balance -1400 950
[2020-06-05] MEDS ORDERED: Ketorolac 30 MG/ML SDV ONE (11:30)
[2020-06-05] MEDS ORDERED: Phenylephrine 1% 10 MG/ML SDV ONE ×2 (12:01)
--- NOTE | 2020-06-05 12:42 | PCM.SN.2 ---
- Free Text/Narrative Note: Paged to LDR3 for difficult IV start Anesthesia time 6760-0315 3 attempts in LUE, all prepped with chlorhexidine. Flash but unable to thread 20g x 1 in LAC, and 20g x 1 in LFA with US. Attempt #3 successful. 20g placed in L upper arm using US. Good blood return and flush. Secured with clear occlusive tegaderm and tape.
[2020-06-05] MEDS: fentaNYL 100 MCG/2 ML SDV IVPUSH PRN ×2 (14:00→14:17)
[2020-06-05] MEDS: Ketorolac 30 MG/ML SDV IVPUSH SCH (20:43)
[2020-06-06] MEDS: Ketorolac 30 MG/ML SDV IVPUSH SCH ×3 (02:29→15:05)
--- NOTE | 2020-06-06 03:21 | OR ---
SURGEON: ERICA MACARIO DATE OF PROCEDURE: 06/05/2020 PROCEDURE: Primary Lower segment section. PREOPERATIVE DIAGNOSES: A 35-year-old G5, P0-0-4-0, at 39 weeks 2 days with failed induction of labor, mild preeclampsia. POSTOPERATIVE DIAGNOSES: A 35-year-old G5, P0-0-4-0, at 39 weeks 2 days with failed induction of labor, mild preeclampsia. ESTIMATED BLOOD LOSS: 700. URINE OUTPUT: 500. IV FLUIDS: 1700. ANESTHESIA: Epidural, but converted to general anaesthesia NOTES AND FINDINGS: A live male delivered at 10:26 a.m. score is 8 and 8. Weight is 4080 g. BRIEF HISTORY: A 35-year-old G5, P0-0-4-0 at 39 weeks 2 days, who came in for induction of labor. Because of mild preeclampsia, she received 4 doses of Cytotec after which a CRB balloon was placed. Pitocin was started, titrated to 28mu. However, after CRB was out, patient did not make change for over 36 hours. The patient was exhausted, was offered a , which she requested for also and she was explained the risks, benefits, and alternatives and she decided to proceed with primary section. PROCEDURE IN DETAIL: The patient was taken to the operating room where epidural anesthesia was topped off. She was prepared and draped in the dorsal supine position with a leftward tilt. A Pfannenstiel skin incision was made with a scalpel and carried down to the fascia with the Bovie. The patient was then complaining of pain and the fascia was extended in the midline superiorly and inferiorly. The abdomen was entered in, and patient was complaining of more pain, as a result decision was made to convert to general anesthesia. General anesthesia was then given. Incision was made. Bladder flap was made. The incision was made in the lower uterine segment, extended upwards and outwards. Fetus was in cephalic position. Head was brought to the level of the incision and was delivered without any difficulty. Cord blood gases were obtained. The cord was clamped and cut and was handed over to the awaiting interior surface insulation worker. The uterus was then massaged and the placenta was delivered via manual massage of the uterine fundus. The uterus was then cleaned with moist laparotomy sponges. The uterine incision was closed in 2 layers, first layer with 0 Vicryl, second layer with 0 Monocryl. The gutters were cleaned with wet sponge. The Cristian retractor was then removed. Incision was inspected, noted to be hemostatic. The peritoneum was closed with 2-0 Vicryl. Then, the fascia was also closed with 0 Vicryl. Subcutaneous fat was closed with plain gut. The skin was closed with 3-0 Monocryl on a Aubrey needle. All instrument and pad counts were correct x2. The patient tolerated the procedure and will go to the recovery room. MAURICIO EARLY /[id number] MTDD
--- NOTE | 2020-06-06 07:13 | PCM.SN.2 ---
- Free Text/Narrative Note: called for Csec. failure to progress. No change in Anesthesia assessment. See Anesthesia record
--- NOTE | 2020-06-06 07:13 | PCM.POSTAN ---
POST ANESTHESIA ASSESSMENT - MENTAL STATUS Mental Status: Alert, Oriented - VITAL SIGNS Vital Signs: Last Vital Signs Temp 36.4 C 06/06/20 05:56 Pulse 88 06/06/20 05:56 Resp 16 06/06/20 05:56 BP 119/74 06/06/20 05:56 Pulse Ox 94 L 06/06/20 05:56 - RESPIRATORY Respiratory Status: Respiratory Rate WNL, Airway Patent, O2 Saturation Stable - CARDIOVASCULAR CV Status: Pulse Rate WNL, Blood Pressure Stable - GASTROINTESTINAL GI Status: No Symptoms - POST OP HYDRATION Hydration Status: Adequate & Stable
--- NOTE | 2020-06-06 07:14 | PCM48HPAN ---
Post Anesthesia Note - EVALUATION WITHIN 48HRS OF ANESTHETIC Vital Signs in Normal Range: Yes Patient Participated in Evaluation: Yes (language barrier) Respiratory Function Stable: Yes Airway Patent: Yes Cardiovascular Function Stable: Yes Hydration Status Stable: Yes Pain Control Satisfactory: Yes Nausea and Vomiting Control Satisfactory: Yes Mental Status Recovered: Yes Vital Signs: Last Vital Signs Temp 36.4 C 06/06/20 05:56 Pulse 88 06/06/20 05:56 Resp 16 06/06/20 05:56 BP 119/74 06/06/20 05:56 Pulse Ox 94 L 06/06/20 05:56
--- NOTE | 2020-06-06 08:24 | PCM.PNPP ---
<aSima Galvan - Last Filed: 06/06/20 08:31> - General Info Date of Service: 06/06/20 Subjective Update: Patient doing ok this morning. Having moderate amount of abdominal pain from c- section - encouraged to request pain medication as needed. States that left leg "doesn't work" and had difficulty with trying to ambulate overnight. Son in place. Formula feeding. Functional Status: Reports: Other (pain not well controlled - encouraged to request pain medication as needed) - Review of Systems General: Reports: No Symptoms HEENT: Reports: No Symptoms Pulmonary: Reports: No Symptoms Cardiovascular: Reports: No Symptoms Gastrointestinal: Reports: Abdominal Pain (appropriate) Genitourinary: Reports: No Symptoms Musculoskeletal: Reports: No Symptoms Skin: Reports: No Symptoms Neurological: Reports: No Symptoms Psychiatric: Reports: No Symptoms - General Info Date of Service: 06/06/20 - Patient Data Vital Signs - Most Recent: Last Vital Signs Temp 98.3 F 06/06/20 07:16 Pulse 84 06/06/20 07:16 Resp 16 06/06/20 07:16 BP 128/75 06/06/20 07:16 Pulse Ox 97 06/06/20 07:16 Weight - Most Recent: 237 lb I&O - Last 24 Hours: Intake & Output 06/05/20 06/06/20 06/06/20 22:59 06:59 14:59 Output Total 400 Balance -400 Lab Results - Last 24 Hours: Laboratory Results - last 24 hr 06/03/20 Range/Units 18:04 RPR Non-Reac (Non-Reac) Med Orders - Current: Current Medications Acetaminophen (Tylenol Extra Strength) 1,000 mg PO Q8H PRN PRN Reason: Pain (mild 1-3) Last Admin: 06/04/20 09:10 Dose: 1,000 mg Documented by: Diphenhydramine HCl (Benadryl) 25 mg IVPUSH Q4H PRN PRN Reason: Itching Stop: 06/06/20 11:27 Fentanyl (Sublimaze) 50 mcg IVPUSH Q1H PRN PRN Reason: Pain (severe 7-10) Last Admin: 06/05/20 14:17 Dose: 50 mcg Documented by: Lactated Ringer's (Ringers, Lactated) 1,000 mls @ 500 mls/hr IV BOLUS JEANNE Oxytocin/Sodium Chloride (Oxytocin 30 Unit/500 Ml-Ns) 30 unit in 500 mls @ 250 mls/hr IV TITRATE JEANNE Ketorolac Tromethamine (Toradol) 30 mg IVPUSH Q6H [facility] Stop: 06/06/20 14:01 Last Admin: 06/06/20 02:29 Dose: 30 mg Documented by: Nalbuphine HCl (Nubain) 5 mg IVPUSH ASDIRECTED PRN PRN Reason: Itching Naloxone HCl (Narcan) 0.1 mg IVPUSH ONETIME PRN PRN Reason: Respiratory Depression Stop: 06/06/20 11:27 Ondansetron HCl (Zofran) 4 mg IVPUSH Q6H PRN PRN Reason: Nausea Oxycodone/Acetaminophen (Percocet 325-5 Mg) 2 tab PO Q6H PRN PRN Reason: Pain (moderate 4-6) Sodium Chloride (Saline Flush) 10 ml FLUSH ASDIRECTED PRN PRN Reason: Keep Vein Open Sodium Chloride (Saline Flush) 2.5 ml FLUSH ASDIRECTED PRN PRN Reason: Keep Vein Open Last Admin: 06/04/20 17:17 Dose: 2.5 ml Documented by: Sodium Chloride (Normal Saline) 10 ml IV ASDIRECTED PRN PRN Reason: IV Use Sodium Chloride (Saline Flush) 10 ml FLUSH ASDIRECTED PRN PRN Reason: Keep Vein Open Sodium Chloride (Saline Flush) 2.5 ml FLUSH ASDIRECTED PRN PRN Reason: Keep Vein Open Sodium Chloride (Normal Saline) 10 ml IV ASDIRECTED PRN PRN Reason: IV Use Discontinued Medications Bupivacaine HCl (Marcaine 0.5%) Confirm Administered Dose 30 ml .ROUTE .STK-MED ONE Stop: 06/05/20 09:35 Last Admin: 06/05/20 15:08 Dose: Not Given Documented by: Butorphanol Tartrate (Stadol) 1 mg IVPUSH Q1H PRN PRN Reason: Pain Last Admin: 06/04/20 17:08 Dose: 1 mg Documented by: Carboprost Tromethamine (Hemabate Ds) 250 mcg IM ASDIRECTED PRN PRN Reason: Post Hemorrhage Citric Acid/Sodium Citrate (Bicitra Solution) 30 ml PO ONETIME ONE Stop: 06/05/20 09:55 Last Admin: 06/05/20 15:09 Dose: Not Given Documented by: Ephedrine Sulfate (Ephedrine Sulfate) Confirm Administered Dose 50 mg .ROUTE .STK-MED ONE Stop: 06/05/20 10:44 Fentanyl (Sublimaze) Confirm Administered Dose 100 mcg .ROUTE .STK-MED ONE Stop: 06/05/20 10:18 Oxytocin/Sodium Chloride (Oxytocin 30 Unit/500 Ml-Ns) 30 unit in 500 mls @ 999 mls/hr IV TITRATE JEANNE Tranexamic Acid 1,000 mg/ (Sodium Chloride) 110 mls @ 660 mls/hr IV ONETIME PRN PRN Reason: Bleeding Oxytocin/Sodium Chloride (Oxytocin 30 Unit/500 Ml-Ns) 30 unit in 500 mls @ 2 mls/hr IV TITRATE JEANNE; Protocol Last Titration: 06/05/20 07:40 Dose: 26 munits/min, 26 mls/hr Documented by: Lactated Ringer's (Ringers, Lactated) 1,000 mls @ 150 mls/hr IV ASDIRECTED JEANNE Last Admin: 06/05/20 15:53 Dose: 150 mls/hr Documented by: Fentanyl/Bupivacaine HCl (Fentanyl/Bupivacaine/Ns 2 Mcg-0.125% 250 Ml) Confirm Administered Dose 250 mls @ as directed .ROUTE .STK-MED ONE Stop: 06/04/20 17:44 Last Admin: 06/04/20 17:45 Dose: Not Given Documented by: Cefazolin Sodium/Dextrose (Ancef 2 Gm/50 Ml) Confirm Administered Dose 50 mls @ as directed .ROUTE .STK-MED ONE Stop: 06/05/20 09:35 Last Admin: 06/05/20 15:08 Dose: Not Given Documented by: Azithromycin 500 mg/ Sodium (Chloride) 250 mls @ 250 mls/hr IV ONETIME ONE Stop: 06/05/20 11:14 Last Admin: 06/05/20 15:09 Dose: Not Given Documented by: Ketorolac Tromethamine (Toradol) Confirm Administered Dose 30 mg .ROUTE .STK-MED ONE Stop: 06/05/20 11:31 Last Admin: 06/05/20 12:30 Dose: 30 mg Documented by: Lidocaine HCl (Xylocaine 1%) 50 ml INJECT ONETIME PRN PRN Reason: Laceration repair Methylergonovine Maleate (Methergine) 0.2 mg IM ASDIRECTED PRN PRN Reason: Post Hemorrhage Midazolam HCl (Versed 1 Mg/Ml) Confirm Administered Dose 2 mg .ROUTE .STK-MED ONE Stop: 06/05/20 10:37 Misoprostol (Cytotec) 200 mcg PO ONETIME PRN PRN Reason: Post Hemorrhage Misoprostol (Cytotec) 25 mcg VAG ONETIME PRN PRN Reason: Cervical Ripening Last Admin: 06/03/20 18:40 Dose: 25 mcg Documented by: Misoprostol (Cytotec) 25 mcg VAG Q4H PRN PRN Reason: Cervical Ripening Last Admin: 06/04/20 08:04 Dose: 25 mcg Documented by: Morphine Sulfate (Duramorph Pf) Confirm Administered Dose 10 mg .ROUTE .STK-MED ONE Stop: 06/05/20 10:01 Nalbuphine HCl (Nubain) 10 mg IVPUSH Q1H PRN PRN Reason: Pain (severe 7-10) Ondansetron HCl (Zofran) 4 mg IVPUSH Q6H PRN PRN Reason: Nausea/Vomiting Ondansetron HCl (Zofran) Confirm Administered Dose 4 mg .ROUTE .STK-MED ONE Stop: 06/05/20 10:01 Oxytocin (Pitocin) Confirm Administered Dose 30 unit .ROUTE .STK-MED ONE Stop: 06/05/20 10:01 Oxytocin (Pitocin) Confirm Administered Dose 20 unit .ROUTE .STK-MED ONE Stop: 06/05/20 12:02 Phenylephrine HCl (Gareth-Synephrine) Confirm Administered Dose 10 mg .ROUTE .STK- MED ONE Stop: 06/05/20 12:02 Phenylephrine HCl (Gareth-Synephrine) Confirm Administered Dose 10 mg .ROUTE .STK- MED ONE Stop: 06/05/20 12:02 Propofol (Diprivan 20 Ml) Confirm Administered Dose 200 mg .ROUTE .STK-MED ONE Stop: 06/05/20 10:22 Ropivacaine (Naropin 0.2%) Confirm Administered Dose 20 ml .ROUTE .STK-MED ONE Stop: 06/04/20 17:43 Last Admin: 06/05/20 15:16 Dose: Not Given Documented by: Sterile Water (Sterile Water For Irrigation) 1,000 ml IRR ASDIRECTED PRN PRN Reason: delivery Terbutaline Sulfate (Brethine) 0.25 mg SUBCUT ASDIRECTED PRN PRN Reason: Tacysystole - Interaction Disposition, : [place] to Nursery Infant Interaction: Not Interacting Infant Feeding: Bottle Fed Infant Support Person: Significant Other - Recovery Exam Fundal Tone: Firm Fundal Level: 1 Fingerbreadths Above Umbilicus Fundal Placement: Midline Lochia Amount: Scant Lochia Color: Rubra/Red Perineum Description: Intact, Minimal Bruising/Swelling Episiotomy/Laceration: None Bladder Status: Indwelling Catheter in Place Urinary Elimination: Indwelling Catheter - Exam General: Alert, Oriented HEENT: Pupils Equal, EOMI Neck: Supple Lungs: Clear to Auscultation, Normal Respiratory Effort Cardiovascular: Regular Rate, Regular Rhythm GI/Abdominal Exam: Soft, No Distention, Tender (appropriate) Extremities: Normal Inspection, Non-Tender, No Pedal Edema, Other (Strength LLE 4/5, difficulty and limited ROM) Wound/Incisions: Dressing Dry and Intact Psy/Mental Status: Alert, Normal Affect, Normal Mood - Problem List & Annotations (1) delivery delivered SNOMED Code(s): 713305226 Code(s): O82 - ENCOUNTER FOR DELIVERY WITHOUT INDICATION Status: Acute Current Visit: Yes Onset Date: ~06/05/20 - Problem List Review Problem List Initiated/Reviewed/Updated: Yes - Assessment Assessment:: 35 year old (EDC 06/09/20 by 1st trimester u/s) POD#1 s/p low transverse section due to failed induction. Vitals stable. Routine pp cares * B +, rubella immune, GBS negative * PO/IV pain medications as needed - encouraged to request when needed * Regular diet * Formula feeding * Encouraged to attempt ambulation pending leg stability Dispo: stable. <Ranulfo Healy - Last Filed: 06/06/20 18:23> - General Info Functional Status: Reports: Other - Patient Data Vital Signs - Most Recent: Last Vital Signs Temp 37.1 C 06/06/20 11:55 Pulse 86 06/06/20 11:55 Resp 18 06/06/20 11:55 BP 121/76 06/06/20 11:55 Pulse Ox 97 06/06/20 11:55 I&O - Last 24 Hours: Intake & Output 06/06/20 06/06/20 06/06/20 06:59 14:59 22:59 Intake Total 1000 Output Total 500 650 Balance 500 -650 Lab Results - Last 24 Hours: Laboratory Results - last 24 hr 06/06/20 06/06/20 Range/Units 09:48 09:48 WBC 11.69 H (4.0-11.0) K/uL RBC 4.45 (4.30-5.90) M/uL Hgb 12.0 (12.0-16.0) g/dL Hct 36.6 (36.0-46.0) % MCV 82.2 (80.0-98.0) fL MCH 27.0 (27.0-32.0) pg MCHC 32.8 (31.0-37.0) g/dL RDW Std Deviation 50.9 (28.0-62.0) fl RDW Coeff of Deon 17 H (11.0-15.0) % Plt Count 169 (150-400) K/uL MPV 10.30 (7.40-12.00) fL Neut % (Auto) 78.3 (48.0-80.0) % Lymph % (Auto) 12.2 L (16.0-40.0) % Band[place] % (Auto) 9.2 (0.0-15.0) % Eos % (Auto) 0.2 (0.0-7.0) % Baso % (Auto) 0.1 (0.0-1.5) % Neut # (Auto) 9.2 H (1.4-5.7) K/uL Lymph # (Auto) 1.4 (0.6-2.4) K/uL Band[place] # (Auto) 1.1 H (0.0-0.8) K/uL Eos # (Auto) 0.0 (0.0-0.7) K/uL Baso # (Auto) 0.0 (0.0-0.1) K/uL Nucleated RBC % 0.0 /100WBC Nucleated RBCs # 0 K/uL Sodium 134 L (136-145) mmol/L Potassium 3.7 (3.5-5.1) mmol/L Chloride 102 (98-107) mmol/L Carbon Dioxide 22.3 (21.0-32.0) mmol/L BUN 6 L (7.0-18.0) mg/dL Creatinine 0.5 L (0.6-1.0) mg/dL Est Cr Clr Drug Dosing 148.41 mL/min Estimated GFR (MDRD) > 60.0 ml/min Glucose 84 (74-106) mg/dL Uric Acid 6.3 (2.6-7.2) mg/dL Calcium 8.6 (8.5-10.1) mg/dL Total Bilirubin 1.5 H (0.2-1.0) mg/dL AST 22 (15-37) IU/L ALT 18 (14-63) IU/L Alkaline Phosphatase 126 H (46-116) U/L Total Protein 5.9 L (6.4-8.2) g/dL Albumin 1.9 L (3.4-5.0) g/dL Globulin 4.0 (2.6-4.0) g/dL Albumin/Globulin Ratio 0.5 L (0.9-1.6) Med Orders - Current: Current Medications Acetaminophen (Tylenol Extra Strength) 1,000 mg PO Q8H PRN PRN Reason: Pain (mild 1-3) Last Admin: 06/04/20 09:10 Dose: 1,000 mg Documented by: Docusate Sodium (Colace) 200 mg PO DAILY PRN PRN Reason: Constipation Last Admin: 06/06/20 11:50 Dose: 200 mg Documented by: Fentanyl (Sublimaze) 50 mcg IVPUSH Q1H PRN PRN Reason: Pain (severe 7-10) Last Admin: 06/05/20 14:17 Dose: 50 mcg Documented by: Lactated Ringer's (Ringers, Lactated) 1,000 mls @ 500 mls/hr IV BOLUS JEANNE Oxytocin/Sodium Chloride (Oxytocin 30 Unit/500 Ml-Ns) 30 unit in 500 mls @ 250 mls/hr IV TITRATE JEANNE Nalbuphine HCl (Nubain) 5 mg IVPUSH ASDIRECTED PRN PRN Reason: Itching Ondansetron HCl (Zofran) 4 mg IVPUSH Q6H PRN PRN Reason: Nausea Oxycodone/Acetaminophen (Percocet 325-5 Mg) 2 tab PO Q6H PRN PRN Reason: Pain (moderate 4-6) Sodium Chloride (Saline Flush) 10 ml FLUSH ASDIRECTED PRN PRN Reason: Keep Vein Open Sodium Chloride (Saline Flush) 2.5 ml FLUSH ASDIRECTED PRN PRN Reason: Keep Vein Open Last Admin: 06/04/20 17:17 Dose: 2.5 ml Documented by: Sodium Chloride (Normal Saline) 10 ml IV ASDIRECTED PRN PRN Reason: IV Use Sodium Chloride (Saline Flush) 10 ml FLUSH ASDIRECTED PRN PRN Reason: Keep Vein Open Sodium Chloride (Saline Flush) 2.5 ml FLUSH ASDIRECTED PRN PRN Reason: Keep Vein Open Sodium Chloride (Normal Saline) 10 ml IV ASDIRECTED PRN PRN Reason: IV Use Discontinued Medications Bupivacaine HCl (Marcaine 0.5%) Confirm Administered Dose 30 ml .ROUTE .STK-MED ONE Stop: 06/05/20 09:35 Last Admin: 06/05/20 15:08 Dose: Not Given Documented by: Butorphanol Tartrate (Stadol) 1 mg IVPUSH Q1H PRN PRN Reason: Pain Last Admin: 06/04/20 17:08 Dose: 1 mg Documented by: Carboprost Tromethamine (Hemabate Ds) 250 mcg IM ASDIRECTED PRN PRN Reason: Post Hemorrhage Citric Acid/Sodium Citrate (Bicitra Solution) 30 ml PO ONETIME ONE Stop: 06/05/20 09:55 Last Admin: 06/05/20 15:09 Dose: Not Given Documented by: Diphenhydramine HCl (Benadryl) 25 mg IVPUSH Q4H PRN PRN Reason: Itching Stop: 06/06/20 11:27 Ephedrine Sulfate (Ephedrine Sulfate) Confirm Administered Dose 50 mg .ROUTE .STK-MED ONE Stop: 06/05/20 10:44 Fentanyl (Sublimaze) Confirm Administered Dose 100 mcg .ROUTE .STK-MED ONE Stop: 06/05/20 10:18 Oxytocin/Sodium Chloride (Oxytocin 30 Unit/500 Ml-Ns) 30 unit in 500 mls @ 999 mls/hr IV TITRATE JEANNE Tranexamic Acid 1,000 mg/ (Sodium Chloride) 110 mls @ 660 mls/hr IV ONETIME PRN PRN Reason: Bleeding Oxytocin/Sodium Chloride (Oxytocin 30 Unit/500 Ml-Ns) 30 unit in 500 mls @ 2 mls/hr IV TITRATE JEANNE; Protocol Last Titration: 06/05/20 07:40 Dose: 26 munits/min, 26 mls/hr Documented by: Lactated Ringer's (Ringers, Lactated) 1,000 mls @ 150 mls/hr IV ASDIRECTED JEANNE Last Admin: 06/05/20 15:53 Dose: 150 mls/hr Documented by: Fentanyl/Bupivacaine HCl (Fentanyl/Bupivacaine/Ns 2 Mcg-0.125% 250 Ml) Confirm Administered Dose 250 mls @ as directed .ROUTE .STK-MED ONE Stop: 06/04/20 17:44 Last Admin: 06/04/20 17:45 Dose: Not Given Documented by: Cefazolin Sodium/Dextrose (Ancef 2 Gm/50 Ml) Confirm Administered Dose 50 mls @ as directed .ROUTE .STK-MED ONE Stop: 06/05/20 09:35 Last Admin: 06/05/20 15:08 Dose: Not Given Documented by: Azithromycin 500 mg/ Sodium (Chloride) 250 mls @ 250 mls/hr IV ONETIME ONE Stop: 06/05/20 11:14 Last Admin: 06/05/20 15:09 Dose: Not Given Documented by: Ketorolac Tromethamine (Toradol) Confirm Administered Dose 30 mg .ROUTE .STK-MED ONE Stop: 06/05/20 11:31 Last Admin: 06/05/20 12:30 Dose: 30 mg Documented by: Ketorolac Tromethamine (Toradol) 30 mg IVPUSH Q6H [facility] Stop: 06/06/20 14:01 Last Admin: 06/06/20 15:05 Dose: 30 mg Documented by: Lidocaine HCl (Xylocaine 1%) 50 ml INJECT ONETIME PRN PRN Reason: Laceration repair Methylergonovine Maleate (Methergine) 0.2 mg IM ASDIRECTED PRN PRN Reason: Post Hemorrhage Midazolam HCl (Versed 1 Mg/Ml) Confirm Administered Dose 2 mg .ROUTE .STK-MED ONE Stop: 06/05/20 10:37 Misoprostol (Cytotec) 200 mcg PO ONETIME PRN PRN Reason: Post Hemorrhage Misoprostol (Cytotec) 25 mcg VAG ONETIME PRN PRN Reason: Cervical Ripening Last Admin: 06/03/20 18:40 Dose: 25 mcg Documented by: Misoprostol (Cytotec) 25 mcg VAG Q4H PRN PRN Reason: Cervical Ripening Last Admin: 06/04/20 08:04 Dose: 25 mcg Documented by: Morphine Sulfate (Duramorph Pf) Confirm Administered Dose 10 mg .ROUTE .STK-MED ONE Stop: 06/05/20 10:01 Nalbuphine HCl (Nubain) 10 mg IVPUSH Q1H PRN PRN Reason: Pain (severe 7-10) Naloxone HCl (Narcan) 0.1 mg IVPUSH ONETIME PRN PRN Reason: Respiratory Depression Stop: 06/06/20 11:27 Ondansetron HCl (Zofran) 4 mg IVPUSH Q6H PRN PRN Reason: Nausea/Vomiting Ondansetron HCl (Zofran) Confirm Administered Dose 4 mg .ROUTE .STK-MED ONE Stop: 06/05/20 10:01 Oxytocin (Pitocin) Confirm Administered Dose 30 unit .ROUTE .STK-MED ONE Stop: 06/05/20 10:01 Oxytocin (Pitocin) Confirm Administered Dose 20 unit .ROUTE .STK-MED ONE Stop: 06/05/20 12:02 Phenylephrine HCl (Gareth-Synephrine) Confirm Administered Dose 10 mg .ROUTE .STK- MED ONE Stop: 06/05/20 12:02 Phenylephrine HCl (Gareth-Synephrine) Confirm Administered Dose 10 mg .ROUTE .STK- MED ONE Stop: 06/05/20 12:02 Propofol (Diprivan 20 Ml) Confirm Administered Dose 200 mg .ROUTE .STK-MED ONE Stop: 06/05/20 10:22 Ropivacaine (Naropin 0.2%) Confirm Administered Dose 20 ml .ROUTE .STK-MED ONE Stop: 06/04/20 17:43 Last Admin: 06/05/20 15:16 Dose: Not Given Documented by: Sterile Water (Sterile Water For Irrigation) 1,000 ml IRR ASDIRECTED PRN PRN Reason: delivery Terbutaline Sulfate (Brethine) 0.25 mg SUBCUT ASDIRECTED PRN PRN Reason: Tacysystole - My Orders Last 24 Hours: My Active Orders 06/06/20 09:07 Docusate Sodium [Colace] 200 mg PO DAILY PRN - Assessment Assessment:: 35yo POD1 s/p primary , complicated by preeclampsia without severe features. BP normotensive to mild range. Repeat labs wnl. Bleeding light, Hgb stable, no s/s of anemia. Encouraged ambulation. Good UO, removed this AM. Plan for discharge home tomorrow.
[2020-06-06 10:31] LABS: BLOOD UREA NITROGEN,BUN 6 mg/dL (7.0-18.0); CARBON DIOXIDE,CO2 22.3 mmol/L (21.0-32.0); CHLORIDE,CL 102 mmol/L (98-107); GLUCOSE RANDOM 84 mg/dL (74-106); POTASSIUM,K 3.7 mmol/L (3.5-5.1); SODIUM,NA 134 mmol/L (136-145)
[2020-06-06] MEDS: Docusate Sodium 100 MG Cap PO PRN (11:50)
[2020-06-06] MEDS ORDERED: Acetaminophen/oxyCODONE 325-5 MG Tab PO PRN (21:29)
[2020-06-06] MEDS: Acetaminophen/oxyCODONE 325-5 MG Tab PO PRN (21:50)
[2020-06-07] MEDS: Acetaminophen/oxyCODONE 325-5 MG Tab PO PRN ×3 (04:06→22:44)
--- NOTE | 2020-06-07 07:54 | PCM.PNPP ---
- General Info Date of Service: 06/07/20 Functional Status: Reports: Pain Controlled, Tolerating Diet, Ambulating, Urinating - Review of Systems General: Reports: No Symptoms HEENT: Reports: No Symptoms Pulmonary: Reports: No Symptoms Cardiovascular: Reports: No Symptoms Gastrointestinal: Reports: No Symptoms Genitourinary: Reports: No Symptoms Musculoskeletal: Reports: No Symptoms Skin: Reports: No Symptoms Neurological: Reports: No Symptoms Psychiatric: Reports: No Symptoms - Patient Data Vital Signs - Most Recent: Last Vital Signs Temp 36.7 C 06/07/20 04:00 Pulse 88 06/07/20 05:08 Resp 18 06/07/20 04:00 BP 122/59 L 06/07/20 05:08 Pulse Ox 97 06/07/20 04:00 Weight - Most Recent: 237 lb I&O - Last 24 Hours: Intake & Output 06/06/20 06/07/20 06/07/20 22:59 06:59 14:59 Output Total 800 Balance -800 Lab Results - Last 24 Hours: Laboratory Results - last 24 hr 06/06/20 06/06/20 Range/Units 09:48 09:48 WBC 11.69 H (4.0-11.0) K/uL RBC 4.45 (4.30-5.90) M/uL Hgb 12.0 (12.0-16.0) g/dL Hct 36.6 (36.0-46.0) % MCV 82.2 (80.0-98.0) fL MCH 27.0 (27.0-32.0) pg MCHC 32.8 (31.0-37.0) g/dL RDW Std Deviation 50.9 (28.0-62.0) fl RDW Coeff of Deon 17 H (11.0-15.0) % Plt Count 169 (150-400) K/uL MPV 10.30 (7.40-12.00) fL Neut % (Auto) 78.3 (48.0-80.0) % Lymph % (Auto) 12.2 L (16.0-40.0) % [place] % (Auto) 9.2 (0.0-15.0) % Eos % (Auto) 0.2 (0.0-7.0) % Baso % (Auto) 0.1 (0.0-1.5) % Neut # (Auto) 9.2 H (1.4-5.7) K/uL Lymph # (Auto) 1.4 (0.6-2.4) K/uL [place] # (Auto) 1.1 H (0.0-0.8) K/uL Eos # (Auto) 0.0 (0.0-0.7) K/uL Baso # (Auto) 0.0 (0.0-0.1) K/uL Nucleated RBC % 0.0 /100WBC Nucleated RBCs # 0 K/uL Sodium 134 L (136-145) mmol/L Potassium 3.7 (3.5-5.1) mmol/L Chloride 102 (98-107) mmol/L Carbon Dioxide 22.3 (21.0-32.0) mmol/L BUN 6 L (7.0-18.0) mg/dL Creatinine 0.5 L (0.6-1.0) mg/dL Est Cr Clr Drug Dosing 148.41 mL/min Estimated GFR (MDRD) > 60.0 ml/min Glucose 84 (74-106) mg/dL Uric Acid 6.3 (2.6-7.2) mg/dL Calcium 8.6 (8.5-10.1) mg/dL Total Bilirubin 1.5 H (0.2-1.0) mg/dL AST 22 (15-37) IU/L ALT 18 (14-63) IU/L Alkaline Phosphatase 126 H (46-116) U/L Total Protein 5.9 L (6.4-8.2) g/dL Albumin 1.9 L (3.4-5.0) g/dL Globulin 4.0 (2.6-4.0) g/dL Albumin/Globulin Ratio 0.5 L (0.9-1.6) Med Orders - Current: Current Medications Acetaminophen (Tylenol Extra Strength) 1,000 mg PO Q8H PRN PRN Reason: Pain (mild 1-3) Last Admin: 06/04/20 09:10 Dose: 1,000 mg Documented by: Docusate Sodium (Colace) 200 mg PO DAILY PRN PRN Reason: Constipation Last Admin: 06/06/20 11:50 Dose: 200 mg Documented by: Fentanyl (Sublimaze) 50 mcg IVPUSH Q1H PRN PRN Reason: Pain (severe 7-10) Last Admin: 06/05/20 14:17 Dose: 50 mcg Documented by: Lactated Ringer's (Ringers, Lactated) 1,000 mls @ 500 mls/hr IV BOLUS JEANNE Oxytocin/Sodium Chloride (Oxytocin 30 Unit/500 Ml-Ns) 30 unit in 500 mls @ 250 mls/hr IV TITRATE JEANNE Nalbuphine HCl (Nubain) 5 mg IVPUSH ASDIRECTED PRN PRN Reason: Itching Ondansetron HCl (Zofran) 4 mg IVPUSH Q6H PRN PRN Reason: Nausea Oxycodone/Acetaminophen (Percocet 325-5 Mg) 2 tab PO Q6H PRN PRN Reason: Pain (moderate 4-6) Oxycodone/Acetaminophen (Percocet 325-5 Mg) 1 tab PO Q4H PRN PRN Reason: Pain (moderate 4-6) Oxycodone/Acetaminophen (Percocet 325-5 Mg) 2 tab PO Q4H PRN PRN Reason: Pain (severe 7-10) Last Admin: 06/07/20 04:06 Dose: 2 tab Documented by: Sodium Chloride (Saline Flush) 10 ml FLUSH ASDIRECTED PRN PRN Reason: Keep Vein Open Sodium Chloride (Saline Flush) 2.5 ml FLUSH ASDIRECTED PRN PRN Reason: Keep Vein Open Last Admin: 06/04/20 17:17 Dose: 2.5 ml Documented by: Sodium Chloride (Normal Saline) 10 ml IV ASDIRECTED PRN PRN Reason: IV Use Sodium Chloride (Saline Flush) 10 ml FLUSH ASDIRECTED PRN PRN Reason: Keep Vein Open Sodium Chloride (Saline Flush) 2.5 ml FLUSH ASDIRECTED PRN PRN Reason: Keep Vein Open Sodium Chloride (Normal Saline) 10 ml IV ASDIRECTED PRN PRN Reason: IV Use Discontinued Medications Bupivacaine HCl (Marcaine 0.5%) Confirm Administered Dose 30 ml .ROUTE .STK-MED ONE Stop: 06/05/20 09:35 Last Admin: 06/05/20 15:08 Dose: Not Given Documented by: Butorphanol Tartrate (Stadol) 1 mg IVPUSH Q1H PRN PRN Reason: Pain Last Admin: 06/04/20 17:08 Dose: 1 mg Documented by: Carboprost Tromethamine (Hemabate Ds) 250 mcg IM ASDIRECTED PRN PRN Reason: Post Hemorrhage Citric Acid/Sodium Citrate (Bicitra Solution) 30 ml PO ONETIME ONE Stop: 06/05/20 09:55 Last Admin: 06/05/20 15:09 Dose: Not Given Documented by: Diphenhydramine HCl (Benadryl) 25 mg IVPUSH Q4H PRN PRN Reason: Itching Stop: 06/06/20 11:27 Ephedrine Sulfate (Ephedrine Sulfate) Confirm Administered Dose 50 mg .ROUTE .STK-MED ONE Stop: 06/05/20 10:44 Fentanyl (Sublimaze) Confirm Administered Dose 100 mcg .ROUTE .STK-MED ONE Stop: 06/05/20 10:18 Oxytocin/Sodium Chloride (Oxytocin 30 Unit/500 Ml-Ns) 30 unit in 500 mls @ 999 mls/hr IV TITRATE JEANNE Tranexamic Acid 1,000 mg/ (Sodium Chloride) 110 mls @ 660 mls/hr IV ONETIME PRN PRN Reason: Bleeding Oxytocin/Sodium Chloride (Oxytocin 30 Unit/500 Ml-Ns) 30 unit in 500 mls @ 2 mls/hr IV TITRATE JEANNE; Protocol Last Titration: 06/05/20 07:40 Dose: 26 munits/min, 26 mls/hr Documented by: Lactated Ringer's (Ringers, Lactated) 1,000 mls @ 150 mls/hr IV ASDIRECTED JEANNE Last Admin: 06/05/20 15:53 Dose: 150 mls/hr Documented by: Fentanyl/Bupivacaine HCl (Fentanyl/Bupivacaine/Ns 2 Mcg-0.125% 250 Ml) Confirm Administered Dose 250 mls @ as directed .ROUTE .STK-MED ONE Stop: 06/04/20 17:44 Last Admin: 06/04/20 17:45 Dose: Not Given Documented by: Cefazolin Sodium/Dextrose (Ancef 2 Gm/50 Ml) Confirm Administered Dose 50 mls @ as directed .ROUTE .STK-MED ONE Stop: 06/05/20 09:35 Last Admin: 06/05/20 15:08 Dose: Not Given Documented by: Azithromycin 500 mg/ Sodium (Chloride) 250 mls @ 250 mls/hr IV ONETIME ONE Stop: 06/05/20 11:14 Last Admin: 06/05/20 15:09 Dose: Not Given Documented by: Ketorolac Tromethamine (Toradol) Confirm Administered Dose 30 mg .ROUTE .STK-MED ONE Stop: 06/05/20 11:31 Last Admin: 06/05/20 12:30 Dose: 30 mg Documented by: Ketorolac Tromethamine (Toradol) 30 mg IVPUSH Q6H JEANNE Stop: 06/06/20 14:01 Last Admin: 06/06/20 15:05 Dose: 30 mg Documented by: Lidocaine HCl (Xylocaine 1%) 50 ml INJECT ONETIME PRN PRN Reason: Laceration repair Methylergonovine Maleate (Methergine) 0.2 mg IM ASDIRECTED PRN PRN Reason: Post Hemorrhage Midazolam HCl (Versed 1 Mg/Ml) Confirm Administered Dose 2 mg .ROUTE .STK-MED ONE Stop: 06/05/20 10:37 Misoprostol (Cytotec) 200 mcg PO ONETIME PRN PRN Reason: Post Hemorrhage Misoprostol (Cytotec) 25 mcg VAG ONETIME PRN PRN Reason: Cervical Ripening Last Admin: 06/03/20 18:40 Dose: 25 mcg Documented by: Misoprostol (Cytotec) 25 mcg VAG Q4H PRN PRN Reason: Cervical Ripening Last Admin: 06/04/20 08:04 Dose: 25 mcg Documented by: Morphine Sulfate (Duramorph Pf) Confirm Administered Dose 10 mg .ROUTE .STK-MED ONE Stop: 06/05/20 10:01 Nalbuphine HCl (Nubain) 10 mg IVPUSH Q1H PRN PRN Reason: Pain (severe 7-10) Naloxone HCl (Narcan) 0.1 mg IVPUSH ONETIME PRN PRN Reason: Respiratory Depression Stop: 06/06/20 11:27 Ondansetron HCl (Zofran) 4 mg IVPUSH Q6H PRN PRN Reason: Nausea/Vomiting Ondansetron HCl (Zofran) Confirm Administered Dose 4 mg .ROUTE .STK-MED ONE Stop: 06/05/20 10:01 Oxytocin (Pitocin) Confirm Administered Dose 30 unit .ROUTE .STK-MED ONE Stop: 06/05/20 10:01 Oxytocin (Pitocin) Confirm Administered Dose 20 unit .ROUTE .STK-MED ONE Stop: 06/05/20 12:02 Phenylephrine HCl (Gareth-Synephrine) Confirm Administered Dose 10 mg .ROUTE .STK- MED ONE Stop: 06/05/20 12:02 Phenylephrine HCl (Garteh-Synephrine) Confirm Administered Dose 10 mg .ROUTE .STK- MED ONE Stop: 06/05/20 12:02 Propofol (Diprivan 20 Ml) Confirm Administered Dose 200 mg .ROUTE .STK-MED ONE Stop: 06/05/20 10:22 Ropivacaine (Naropin 0.2%) Confirm Administered Dose 20 ml .ROUTE .STK-MED ONE Stop: 06/04/20 17:43 Last Admin: 06/05/20 15:16 Dose: Not Given Documented by: Sterile Water (Sterile Water For Irrigation) 1,000 ml IRR ASDIRECTED PRN PRN Reason: delivery Terbutaline Sulfate (Brethine) 0.25 mg SUBCUT ASDIRECTED PRN PRN Reason: Tacysystole - Interaction Disposition, : [place] to Nursery Infant Interaction: Not Interacting Infant Feeding: Bottle Fed Support Person: Significant Other - Recovery Exam Fundal Tone: Firm Fundal Level: 1 Fingerbreadths Below Umbilicus Fundal Placement: Midline Lochia Amount: Scant Lochia Color: Rubra/Red Perineum Description: Intact, Minimal Bruising/Swelling Episiotomy/Laceration: None Bladder Status: Voiding Urinary Elimination: Voided - Exam General: Alert, Oriented, Cooperative, No Acute Distress HEENT: Pupils Equal, Pupils Reactive Neck: Supple, Trachea Midline, No JVD Lungs: Normal Respiratory Effort GI/Abdominal Exam: Soft, Non-Tender, No Distention Extremities: Normal Inspection, Normal Range of Motion, Non-Tender, No Pedal Edema Skin: Warm, Intact Wound/Incisions: Healing Well Neurological: No New Focal Deficit Psy/Mental Status: Alert, Normal Affect, Normal Mood - Problem List Review Problem List Initiated/Reviewed/Updated: Yes - My Orders Last 24 Hours: My Active Orders 06/06/20 09:07 Docusate Sodium [Colace] 200 mg PO DAILY PRN 06/06/20 21:29 Acetaminophen/oxyCODONE [Percocet 325-5 MG] 1 tab PO Q4H PRN Acetaminophen/oxyCODONE [Percocet 325-5 MG] 2 tab PO Q4H PRN - Assessment Assessment:: 35yo POD2 s/p primary , complicated by preeclampsia without severe features. - Plan Plan:: BP normotensive to mild range. Repeat labs wnl. Bleeding light, Hgb stable, no s/s of anemia. Encouraged ambulation. Plan for discharge home tomorrow. BP and incision check in 1 week.
--- NOTE | 2020-06-07 07:54 | PCM.PNPP ---
- General Info Date of Service: 06/07/20 Subjective Update: Patient doing well this am. Able to ambulate and void appropriately. Pain controlled with PO pain medication. Functional Status: Reports: Pain Controlled - Review of Systems General: Reports: No Symptoms HEENT: Reports: No Symptoms Pulmonary: Reports: No Symptoms Cardiovascular: Reports: No Symptoms Gastrointestinal: Reports: No Symptoms Genitourinary: Reports: No Symptoms Musculoskeletal: Reports: No Symptoms Skin: Reports: No Symptoms Neurological: Reports: No Symptoms Psychiatric: Reports: No Symptoms - General Info Date of Service: 06/07/20 - Patient Data Vital Signs - Most Recent: Last Vital Signs Temp 98.1 F 06/07/20 04:00 Pulse 88 06/07/20 05:08 Resp 18 06/07/20 04:00 BP 122/59 L 06/07/20 05:08 Pulse Ox 97 06/07/20 04:00 Weight - Most Recent: 237 lb I&O - Last 24 Hours: Intake & Output 06/06/20 06/07/20 06/07/20 22:59 06:59 14:59 Output Total 800 Balance -800 Lab Results - Last 24 Hours: Laboratory Results - last 24 hr 06/06/20 06/06/20 Range/Units 09:48 09:48 WBC 11.69 H (4.0-11.0) K/uL RBC 4.45 (4.30-5.90) M/uL Hgb 12.0 (12.0-16.0) g/dL Hct 36.6 (36.0-46.0) % MCV 82.2 (80.0-98.0) fL MCH 27.0 (27.0-32.0) pg MCHC 32.8 (31.0-37.0) g/dL RDW Std Deviation 50.9 (28.0-62.0) fl RDW Coeff of Deon 17 H (11.0-15.0) % Plt Count 169 (150-400) K/uL MPV 10.30 (7.40-12.00) fL Neut % (Auto) 78.3 (48.0-80.0) % Lymph % (Auto) 12.2 L (16.0-40.0) % [place] % (Auto) 9.2 (0.0-15.0) % Eos % (Auto) 0.2 (0.0-7.0) % Baso % (Auto) 0.1 (0.0-1.5) % Neut # (Auto) 9.2 H (1.4-5.7) K/uL Lymph # (Auto) 1.4 (0.6-2.4) K/uL [place] # (Auto) 1.1 H (0.0-0.8) K/uL Eos # (Auto) 0.0 (0.0-0.7) K/uL Baso # (Auto) 0.0 (0.0-0.1) K/uL Nucleated RBC % 0.0 /100WBC Nucleated RBCs # 0 K/uL Sodium 134 L (136-145) mmol/L Potassium 3.7 (3.5-5.1) mmol/L Chloride 102 (98-107) mmol/L Carbon Dioxide 22.3 (21.0-32.0) mmol/L BUN 6 L (7.0-18.0) mg/dL Creatinine 0.5 L (0.6-1.0) mg/dL Est Cr Clr Drug Dosing 148.41 mL/min Estimated GFR (MDRD) > 60.0 ml/min Glucose 84 (74-106) mg/dL Uric Acid 6.3 (2.6-7.2) mg/dL Calcium 8.6 (8.5-10.1) mg/dL Total Bilirubin 1.5 H (0.2-1.0) mg/dL AST 22 (15-37) IU/L ALT 18 (14-63) IU/L Alkaline Phosphatase 126 H (46-116) U/L Total Protein 5.9 L (6.4-8.2) g/dL Albumin 1.9 L (3.4-5.0) g/dL Globulin 4.0 (2.6-4.0) g/dL Albumin/Globulin Ratio 0.5 L (0.9-1.6) Med Orders - Current: Current Medications Acetaminophen (Tylenol Extra Strength) 1,000 mg PO Q8H PRN PRN Reason: Pain (mild 1-3) Last Admin: 06/04/20 09:10 Dose: 1,000 mg Documented by: Docusate Sodium (Colace) 200 mg PO DAILY PRN PRN Reason: Constipation Last Admin: 06/06/20 11:50 Dose: 200 mg Documented by: Fentanyl (Sublimaze) 50 mcg IVPUSH Q1H PRN PRN Reason: Pain (severe 7-10) Last Admin: 06/05/20 14:17 Dose: 50 mcg Documented by: Lactated Ringer's (Ringers, Lactated) 1,000 mls @ 500 mls/hr IV BOLUS JEANNE Oxytocin/Sodium Chloride (Oxytocin 30 Unit/500 Ml-Ns) 30 unit in 500 mls @ 250 mls/hr IV TITRATE JEANNE Nalbuphine HCl (Nubain) 5 mg IVPUSH ASDIRECTED PRN PRN Reason: Itching Ondansetron HCl (Zofran) 4 mg IVPUSH Q6H PRN PRN Reason: Nausea Oxycodone/Acetaminophen (Percocet 325-5 Mg) 2 tab PO Q6H PRN PRN Reason: Pain (moderate 4-6) Oxycodone/Acetaminophen (Percocet 325-5 Mg) 1 tab PO Q4H PRN PRN Reason: Pain (moderate 4-6) Oxycodone/Acetaminophen (Percocet 325-5 Mg) 2 tab PO Q4H PRN PRN Reason: Pain (severe 7-10) Last Admin: 06/07/20 04:06 Dose: 2 tab Documented by: Sodium Chloride (Saline Flush) 10 ml FLUSH ASDIRECTED PRN PRN Reason: Keep Vein Open Sodium Chloride (Saline Flush) 2.5 ml FLUSH ASDIRECTED PRN PRN Reason: Keep Vein Open Last Admin: 06/04/20 17:17 Dose: 2.5 ml Documented by: Sodium Chloride (Normal Saline) 10 ml IV ASDIRECTED PRN PRN Reason: IV Use Sodium Chloride (Saline Flush) 10 ml FLUSH ASDIRECTED PRN PRN Reason: Keep Vein Open Sodium Chloride (Saline Flush) 2.5 ml FLUSH ASDIRECTED PRN PRN Reason: Keep Vein Open Sodium Chloride (Normal Saline) 10 ml IV ASDIRECTED PRN PRN Reason: IV Use Discontinued Medications Bupivacaine HCl (Marcaine 0.5%) Confirm Administered Dose 30 ml .ROUTE .[facility]-MED ONE Stop: 06/05/20 09:35 Last Admin: 06/05/20 15:08 Dose: Not Given Documented by: Butorphanol Tartrate (Stadol) 1 mg IVPUSH Q1H PRN PRN Reason: Pain Last Admin: 06/04/20 17:08 Dose: 1 mg Documented by: Carboprost Tromethamine (Hemabate Ds) 250 mcg IM ASDIRECTED PRN PRN Reason: Post Hemorrhage Citric Acid/Sodium Citrate (Bicitra Solution) 30 ml PO ONETIME ONE Stop: 06/05/20 09:55 Last Admin: 06/05/20 15:09 Dose: Not Given Documented by: Diphenhydramine HCl (Benadryl) 25 mg IVPUSH Q4H PRN PRN Reason: Itching Stop: 06/06/20 11:27 Ephedrine Sulfate (Ephedrine Sulfate) Confirm Administered Dose 50 mg .ROUTE .STK-MED ONE Stop: 06/05/20 10:44 Fentanyl (Sublimaze) Confirm Administered Dose 100 mcg .ROUTE .STK-MED ONE Stop: 06/05/20 10:18 Oxytocin/Sodium Chloride (Oxytocin 30 Unit/500 Ml-Ns) 30 unit in 500 mls @ 999 mls/hr IV TITRATE JEANNE Tranexamic Acid 1,000 mg/ (Sodium Chloride) 110 mls @ 660 mls/hr IV ONETIME PRN PRN Reason: Bleeding Oxytocin/Sodium Chloride (Oxytocin 30 Unit/500 Ml-Ns) 30 unit in 500 mls @ 2 mls/hr IV TITRATE JEANNE; Protocol Last Titration: 06/05/20 07:40 Dose: 26 munits/min, 26 mls/hr Documented by: Lactated Ringer's (Ringers, Lactated) 1,000 mls @ 150 mls/hr IV ASDIRECTED JEANNE Last Admin: 06/05/20 15:53 Dose: 150 mls/hr Documented by: Fentanyl/Bupivacaine HCl (Fentanyl/Bupivacaine/Ns 2 Mcg-0.125% 250 Ml) Confirm Administered Dose 250 mls @ as directed .ROUTE .STK-MED ONE Stop: 06/04/20 17:44 Last Admin: 06/04/20 17:45 Dose: Not Given Documented by: Cefazolin Sodium/Dextrose (Ancef 2 Gm/50 Ml) Confirm Administered Dose 50 mls @ as directed .ROUTE .STK-MED ONE Stop: 06/05/20 09:35 Last Admin: 06/05/20 15:08 Dose: Not Given Documented by: Azithromycin 500 mg/ Sodium (Chloride) 250 mls @ 250 mls/hr IV ONETIME ONE Stop: 06/05/20 11:14 Last Admin: 06/05/20 15:09 Dose: Not Given Documented by: Ketorolac Tromethamine (Toradol) Confirm Administered Dose 30 mg .ROUTE .STK-MED ONE Stop: 06/05/20 11:31 Last Admin: 06/05/20 12:30 Dose: 30 mg Documented by: Ketorolac Tromethamine (Toradol) 30 mg IVPUSH Q6H JEANNE Stop: 06/06/20 14:01 Last Admin: 06/06/20 15:05 Dose: 30 mg Documented by: Lidocaine HCl (Xylocaine 1%) 50 ml INJECT ONETIME PRN PRN Reason: Laceration repair Methylergonovine Maleate (Methergine) 0.2 mg IM ASDIRECTED PRN PRN Reason: Post Hemorrhage Midazolam HCl (Versed 1 Mg/Ml) Confirm Administered Dose 2 mg .ROUTE .STK-MED ONE Stop: 06/05/20 10:37 Misoprostol (Cytotec) 200 mcg PO ONETIME PRN PRN Reason: Post Hemorrhage Misoprostol (Cytotec) 25 mcg VAG ONETIME PRN PRN Reason: Cervical Ripening Last Admin: 06/03/20 18:40 Dose: 25 mcg Documented by: Misoprostol (Cytotec) 25 mcg VAG Q4H PRN PRN Reason: Cervical Ripening Last Admin: 06/04/20 08:04 Dose: 25 mcg Documented by: Morphine Sulfate (Duramorph Pf) Confirm Administered Dose 10 mg .ROUTE .STK-MED ONE Stop: 06/05/20 10:01 Nalbuphine HCl (Nubain) 10 mg IVPUSH Q1H PRN PRN Reason: Pain (severe 7-10) Naloxone HCl (Narcan) 0.1 mg IVPUSH ONETIME PRN PRN Reason: Respiratory Depression Stop: 06/06/20 11:27 Ondansetron HCl (Zofran) 4 mg IVPUSH Q6H PRN PRN Reason: Nausea/Vomiting Ondansetron HCl (Zofran) Confirm Administered Dose 4 mg .ROUTE .STK-MED ONE Stop: 06/05/20 10:01 Oxytocin (Pitocin) Confirm Administered Dose 30 unit .ROUTE .STK-MED ONE Stop: 06/05/20 10:01 Oxytocin (Pitocin) Confirm Administered Dose 20 unit .ROUTE .STK-MED ONE Stop: 06/05/20 12:02 Phenylephrine HCl (Gareth-Synephrine) Confirm Administered Dose 10 mg .ROUTE .STK- MED ONE Stop: 06/05/20 12:02 Phenylephrine HCl (Gareth-Synephrine) Confirm Administered Dose 10 mg .ROUTE .STK- MED ONE Stop: 06/05/20 12:02 Propofol (Diprivan 20 Ml) Confirm Administered Dose 200 mg .ROUTE .STK-MED ONE Stop: 06/05/20 10:22 Ropivacaine (Naropin 0.2%) Confirm Administered Dose 20 ml .ROUTE .STK-MED ONE Stop: 06/04/20 17:43 Last Admin: 06/05/20 15:16 Dose: Not Given Documented by: Sterile Water (Sterile Water For Irrigation) 1,000 ml IRR ASDIRECTED PRN PRN Reason: delivery Terbutaline Sulfate (Brethine) 0.25 mg SUBCUT ASDIRECTED PRN PRN Reason: Tacysystole - Infant Interaction Disposition, : [place] to Nursery Interaction: Not Interacting Infant Feeding: Bottle Fed Support Person: Significant Other - Recovery Exam Fundal Tone: Firm Fundal Level: 1 Fingerbreadths Below Umbilicus Fundal Placement: Midline Lochia Amount: Scant Lochia Color: Rubra/Red Perineum Description: Intact, Minimal Bruising/Swelling Episiotomy/Laceration: None Bladder Status: Voiding Urinary Elimination: Voided - Exam General: Alert, Oriented HEENT: Pupils Equal, EOMI Neck: Supple Lungs: Clear to Auscultation, Normal Respiratory Effort Cardiovascular: Regular Rate, Regular Rhythm GI/Abdominal Exam: Soft, No Distention, Tender (appropriate) Extremities: Normal Inspection, Non-Tender Skin: Warm, Dry, Intact Wound/Incisions: Healing Well Neurological: No New Focal Deficit Psy/Mental Status: Alert, Normal Affect, Normal Mood - Problem List & Annotations (1) delivery delivered SNOMED Code(s): 601497149 Code(s): O82 - ENCOUNTER FOR DELIVERY WITHOUT INDICATION Status: Acute Current Visit: Yes Onset Date: ~06/05/20 - Problem List Review Problem List Initiated/Reviewed/Updated: Yes - Assessment Assessment:: 35yo POD1 s/p primary , complicated by preeclampsia without severe features. BP normotensive to mild range. Repeat labs wnl. Bleeding light, Hgb stable, no s/s of anemia. Encouraged ambulation. Good UO, william removed 06/06 Plan for discharge home today. - Plan Plan:: Dispo: stable. Anticipate discharge to home today.
[2020-06-07] MEDS: Ibuprofen 800 MG Tab PO PRN (09:36)
[2020-06-07] MEDS: Docusate Sodium 100 MG Cap PO PRN (09:36)
[2020-06-08] MEDS: Ibuprofen 800 MG Tab PO PRN (05:50)
--- NOTE | 2020-06-08 11:06 | PCM.PNPP ---
- General Info Date of Service: 06/08/20 Subjective Update: Patient doing well this am. Able to ambulate and void appropriately. Pain controlled with PO pain medication.Blood pressures have remained controlled. Functional Status: Reports: Pain Controlled, Tolerating Diet, Ambulating, Urinating - Review of Systems General: Reports: Fatigue. Denies: Fever, Weakness Pulmonary: Denies: Shortness of Breath Cardiovascular: Denies: Chest Pain, Palpitations, Lightheadedness Gastrointestinal: Denies: Abdominal Pain, Nausea, Vomiting Genitourinary: Denies: Flank Pain Musculoskeletal: Reports: No Symptoms Skin: Reports: No Symptoms Neurological: Reports: No Symptoms Psychiatric: Reports: No Symptoms - General Info Date of Service: 06/08/20 - Patient Data Vital Signs - Most Recent: Last Vital Signs Temp 36.1 C 06/08/20 08:39 Pulse 78 06/08/20 08:39 Resp 18 06/08/20 08:39 BP 131/78 06/08/20 08:39 Pulse Ox 97 06/08/20 08:39 Weight - Most Recent: 107.501 kg Med Orders - Current: Current Medications Acetaminophen (Tylenol Extra Strength) 1,000 mg PO Q8H PRN PRN Reason: Pain (mild 1-3) Last Admin: 06/04/20 09:10 Dose: 1,000 mg Documented by: Docusate Sodium (Colace) 200 mg PO DAILY PRN PRN Reason: Constipation Last Admin: 06/07/20 09:36 Dose: 200 mg Documented by: Fentanyl (Sublimaze) 50 mcg IVPUSH Q1H PRN PRN Reason: Pain (severe 7-10) Last Admin: 06/05/20 14:17 Dose: 50 mcg Documented by: Lactated Ringer's (Ringers, Lactated) 1,000 mls @ 500 mls/hr IV BOLUS JEANNE Oxytocin/Sodium Chloride (Oxytocin 30 Unit/500 Ml-Ns) 30 unit in 500 mls @ 250 mls/hr IV TITRATE JEANNE Ibuprofen (Motrin) 800 mg PO Q8H PRN PRN Reason: Pain Last Admin: 06/08/20 05:50 Dose: 800 mg Documented by: Nalbuphine HCl (Nubain) 5 mg IVPUSH ASDIRECTED PRN PRN Reason: Itching Ondansetron HCl (Zofran) 4 mg IVPUSH Q6H PRN PRN Reason: Nausea Oxycodone/Acetaminophen (Percocet 325-5 Mg) 2 tab PO Q6H PRN PRN Reason: Pain (moderate 4-6) Last Admin: 06/07/20 09:38 Dose: 2 tab Documented by: Oxycodone/Acetaminophen (Percocet 325-5 Mg) 1 tab PO Q4H PRN PRN Reason: Pain (moderate 4-6) Oxycodone/Acetaminophen (Percocet 325-5 Mg) 2 tab PO Q4H PRN PRN Reason: Pain (severe 7-10) Last Admin: 06/07/20 22:44 Dose: 2 tab Documented by: Sodium Chloride (Saline Flush) 10 ml FLUSH ASDIRECTED PRN PRN Reason: Keep Vein Open Sodium Chloride (Saline Flush) 2.5 ml FLUSH ASDIRECTED PRN PRN Reason: Keep Vein Open Last Admin: 06/04/20 17:17 Dose: 2.5 ml Documented by: Sodium Chloride (Normal Saline) 10 ml IV ASDIRECTED PRN PRN Reason: IV Use Sodium Chloride (Saline Flush) 10 ml FLUSH ASDIRECTED PRN PRN Reason: Keep Vein Open Sodium Chloride (Saline Flush) 2.5 ml FLUSH ASDIRECTED PRN PRN Reason: Keep Vein Open Sodium Chloride (Normal Saline) 10 ml IV ASDIRECTED PRN PRN Reason: IV Use Discontinued Medications Bupivacaine HCl (Marcaine 0.5%) Confirm Administered Dose 30 ml .ROUTE .STK-MED ONE Stop: 06/05/20 09:35 Last Admin: 06/05/20 15:08 Dose: Not Given Documented by: Butorphanol Tartrate (Stadol) 1 mg IVPUSH Q1H PRN PRN Reason: Pain Last Admin: 06/04/20 17:08 Dose: 1 mg Documented by: Carboprost Tromethamine (Hemabate Ds) 250 mcg IM ASDIRECTED PRN PRN Reason: Post Hemorrhage Citric Acid/Sodium Citrate (Bicitra Solution) 30 ml PO ONETIME ONE Stop: 06/05/20 09:55 Last Admin: 06/05/20 15:09 Dose: Not Given Documented by: Diphenhydramine HCl (Benadryl) 25 mg IVPUSH Q4H PRN PRN Reason: Itching Stop: 06/06/20 11:27 Ephedrine Sulfate (Ephedrine Sulfate) Confirm Administered Dose 50 mg .ROUTE .STK-MED ONE Stop: 06/05/20 10:44 Fentanyl (Sublimaze) Confirm Administered Dose 100 mcg .ROUTE .STK-MED ONE Stop: 06/05/20 10:18 Oxytocin/Sodium Chloride (Oxytocin 30 Unit/500 Ml-Ns) 30 unit in 500 mls @ 999 mls/hr IV TITRATE JEANNE Tranexamic Acid 1,000 mg/ (Sodium Chloride) 110 mls @ 660 mls/hr IV ONETIME PRN PRN Reason: Bleeding Oxytocin/Sodium Chloride (Oxytocin 30 Unit/500 Ml-Ns) 30 unit in 500 mls @ 2 mls/hr IV TITRATE JEANNE; Protocol Last Titration: 06/05/20 07:40 Dose: 26 munits/min, 26 mls/hr Documented by: Lactated Ringer's (Ringers, Lactated) 1,000 mls @ 150 mls/hr IV ASDIRECTED [facility] Last Admin: 06/05/20 15:53 Dose: 150 mls/hr Documented by: Fentanyl/Bupivacaine HCl (Fentanyl/Bupivacaine/Ns 2 Mcg-0.125% 250 Ml) Confirm Administered Dose 250 mls @ as directed .ROUTE .STK-MED ONE Stop: 06/04/20 17:44 Last Admin: 06/04/20 17:45 Dose: Not Given Documented by: Cefazolin Sodium/Dextrose (Ancef 2 Gm/50 Ml) Confirm Administered Dose 50 mls @ as directed .ROUTE .STK-MED ONE Stop: 06/05/20 09:35 Last Admin: 06/05/20 15:08 Dose: Not Given Documented by: Azithromycin 500 mg/ Sodium (Chloride) 250 mls @ 250 mls/hr IV ONETIME ONE Stop: 06/05/20 11:14 Last Admin: 06/05/20 15:09 Dose: Not Given Documented by: Ketorolac Tromethamine (Toradol) Confirm Administered Dose 30 mg .ROUTE .STK-MED ONE Stop: 06/05/20 11:31 Last Admin: 06/05/20 12:30 Dose: 30 mg Documented by: Ketorolac Tromethamine (Toradol) 30 mg IVPUSH Q6H [facility] Stop: 06/06/20 14:01 Last Admin: 06/06/20 15:05 Dose: 30 mg Documented by: Lidocaine HCl (Xylocaine 1%) 50 ml INJECT ONETIME PRN PRN Reason: Laceration repair Methylergonovine Maleate (Methergine) 0.2 mg IM ASDIRECTED PRN PRN Reason: Post Hemorrhage Midazolam HCl (Versed 1 Mg/Ml) Confirm Administered Dose 2 mg .ROUTE .STK-MED ONE Stop: 06/05/20 10:37 Misoprostol (Cytotec) 200 mcg PO ONETIME PRN PRN Reason: Post Hemorrhage Misoprostol (Cytotec) 25 mcg VAG ONETIME PRN PRN Reason: Cervical Ripening Last Admin: 06/03/20 18:40 Dose: 25 mcg Documented by: Misoprostol (Cytotec) 25 mcg VAG Q4H PRN PRN Reason: Cervical Ripening Last Admin: 06/04/20 08:04 Dose: 25 mcg Documented by: Morphine Sulfate (Duramorph Pf) Confirm Administered Dose 10 mg .ROUTE .STK-MED ONE Stop: 06/05/20 10:01 Nalbuphine HCl (Nubain) 10 mg IVPUSH Q1H PRN PRN Reason: Pain (severe 7-10) Naloxone HCl (Narcan) 0.1 mg IVPUSH ONETIME PRN PRN Reason: Respiratory Depression Stop: 06/06/20 11:27 Ondansetron HCl (Zofran) 4 mg IVPUSH Q6H PRN PRN Reason: Nausea/Vomiting Ondansetron HCl (Zofran) Confirm Administered Dose 4 mg .ROUTE .STK-MED ONE Stop: 06/05/20 10:01 Oxytocin (Pitocin) Confirm Administered Dose 30 unit .ROUTE .STK-MED ONE Stop: 06/05/20 10:01 Oxytocin (Pitocin) Confirm Administered Dose 20 unit .ROUTE .STK-MED ONE Stop: 06/05/20 12:02 Phenylephrine HCl (Gareth-Synephrine) Confirm Administered Dose 10 mg .ROUTE .STK- MED ONE Stop: 06/05/20 12:02 Phenylephrine HCl (Gareth-Synephrine) Confirm Administered Dose 10 mg .ROUTE .STK- MED ONE Stop: 06/05/20 12:02 Propofol (Diprivan 20 Ml) Confirm Administered Dose 200 mg .ROUTE .STK-MED ONE Stop: 06/05/20 10:22 Ropivacaine (Naropin 0.2%) Confirm Administered Dose 20 ml .ROUTE .STK-MED ONE Stop: 06/04/20 17:43 Last Admin: 06/05/20 15:16 Dose: Not Given Documented by: Sterile Water (Sterile Water For Irrigation) 1,000 ml IRR ASDIRECTED PRN PRN Reason: delivery Terbutaline Sulfate (Brethine) 0.25 mg SUBCUT ASDIRECTED PRN PRN Reason: Tacysystole - Infant Interaction Infant Disposition, : [place] to Nursery Interaction: Not Interacting Feeding: Bottle Fed Infant Support Person: Significant Other - Recovery Exam Fundal Tone: Boggy Fundal Level: 1 Fingerbreadths Above Umbilicus Fundal Placement: Midline Lochia Amount: Scant Lochia Color: Rubra/Red Perineum Description: Intact, Minimal Bruising/Swelling Episiotomy/Laceration: None Bladder Status: Voiding Urinary Elimination: Voided - Exam General: Alert, Oriented Lungs: Normal Respiratory Effort Cardiovascular: Regular Rate, Regular Rhythm GI/Abdominal Exam: Normal Bowel Sounds, Soft Extremities: Pedal Edema (1+). No: Kailey's Sign Skin: Warm, Dry, Intact Wound/Incisions: Healing Well, No Drainage. No: Erythema Neurological: No New Focal Deficit Psy/Mental Status: Alert, Normal Affect, Normal Mood - Problem List & Annotations (1) delivery delivered SNOMED Code(s): 329920283 Code(s): O82 - ENCOUNTER FOR DELIVERY WITHOUT INDICATION Status: Acute Current Visit: Yes Onset Date: ~06/05/20 (2) Preeclampsia SNOMED Code(s): 987876515 Code(s): O14.90 - UNSPECIFIED PRE-ECLAMPSIA, UNSPECIFIED TRIMESTER Status: Acute Current Visit: Yes Qualifiers: Trimester: third trimester Qualified Code(s): O14.93 - Unspecified pre-eclampsia, third trimester - Problem List Review Problem List Initiated/Reviewed/Updated: Yes - My Orders Last 24 Hours: My Active Orders 06/08/20 11:03 Ready for Discharge [RC] PER UNIT ROUTINE - Assessment Assessment:: 35yo POD3 s/p primary , complicated by preeclampsia without severe features. - Plan Plan:: Blood pressures remain within normal range. Ready to go home. Discharge instuctions reviewed. BP and incision check in 1 week at [facility]. Discharge to home today.
== END 2020-06-08 13:15 | disposition home or self-care (01) | DRG 788 ==
LOC: MW.OB 10:26 → OBSVTOIN 06-05 10:26 → MW.OB 06-05 15:30
PROVIDERS: ADMIT Obstetrics & Gynecology; ATTEND Obstetrics & Gynecology
PROC: 10D00Z1 Extraction of Products of Conception, Low, Open Approach (ICD-10-PCS; principal; 2020-06-05)
PROC: 3E0P7VZ Introduction of Hormone into Female Reproductive, Via Natural or Artificial Opening (ICD-10-PCS; 2020-06-05)
PROC: 3E033VJ Introduction of Other Hormone into Peripheral Vein, Percutaneous Approach (ICD-10-PCS; 2020-06-05)
PROC: 3E0R3BZ Introduction of Anesthetic Agent into Spinal Canal, Percutaneous Approach (ICD-10-PCS; 2020-06-05)
PROC: 00HU33Z Insertion of Infusion Device into Spinal Canal, Percutaneous Approach (ICD-10-PCS; 2020-06-05)
DX: O14.04 Mild to moderate pre-eclampsia, complicating childbirth (principal); Z37.0 Single live birth; O99.02 Anemia complicating childbirth; D64.9 Anemia, unspecified; O34.13 Maternal care for benign tumor of corpus uteri, third trimester; D25.9 Leiomyoma of uterus, unspecified; O36.63X0 Maternal care for excessive fetal growth, third trimester, not applicable or unspecified; Z20.822 Contact with and (suspected) exposure to COVID-19; Z3A.39 39 weeks gestation of pregnancy
CPT/HCPCS: 36410; 36415; 51702; 59025; 59200; 80053; 82570; 84156; 84550; 85025; 86592; 86850; 86900; 86901; A9270-GY; J0330; J0595; J0690; J1885; J2250; J2270; J2370; J2405; J2590; J2704; J2795; J3010; J3490; J7120; U0002